=== PATIENT | male | born 1950 | race Caucasian/White ===

== ENCOUNTER 2020-12-14 14:56 | Outpatient (REF) | payer MEDICARE, MEDICAID, OTHER, SELFPAY ==
[2020-12-14 15:44] LABS: MANUAL DIFF FLAG NO
[2020-12-14 15:50] LABS: Basophils Absolute Auto 0.1 X10*3/uL (0.0-0.2); Basophils Percent Auto 0.6 % (0-2); Eosinophils Absolute Auto 0.5 X10*3/uL (0.0-0.4); Eosinophils Percent Auto 6.6 % (0-4); Hematocrit 48.9 % (42-52); Hemoglobin 16.7 g/dl (14.0-18.0); Imm Gran Abs Auto 0.05 X10*3/uL (0.00-0.03); Imm Gran Pct Auto 0.6 % (0.0-0.4); Lymphocytes Absolute Auto 2.1 X10*3/uL (1.2-4.9); Lymphocytes Percent Auto 26.6 % (20-40); Mean Corpuscular HGB Conc 34.2 g/dl (31.0-36.0); Mean Corpuscular Hemoglobin 30.4 pg (27.0-33.0); Mean Corpuscular Volume 88.9 fL (80-98); Mean Platelet Volume 11.3 fL (9.4-12.4); Monocytes Absolute Auto 0.7 X10*3/uL (0.1-1.2); Monocytes Percent Auto 9.3 % (2-11); Neutrophils Absolute Auto 4.4 X10*3/uL (2.0-8.3); Neutrophils Percent Auto 56.3 % (45-73); Platelet Count 244 X10*3/uL (160-400); White Blood Count 7.7 X10*3/uL (4.8-10.8)
[2020-12-14 16:10] LABS: Anion Gap 17 (12-20); Blood Urea Nitrogen 27 mg/dL (9-16); Calcium 9.8 mg/dL (8.4-10.2); Carbon Dioxide 23 mmol/L (22-29); Chloride 100 mmol/L (96-108); Estimated Glomerular Filt Rate 37; Potassium 4.8 mmol/L (3.3-5.1); Sodium 135 mmol/L (135-145)
== END 2020-12-14 14:57 | disposition home or self-care (01) ==
LOC: HO.LAB 14:56
PROVIDERS: PCP Family Medicine; Visit Provider Internal Medicine Nephrology
DX: E11.22 Type 2 diabetes mellitus with diabetic chronic kidney disease (principal); N18.4 Chronic kidney disease, stage 4 (severe); I15.0 Renovascular hypertension; I70.1 Atherosclerosis of renal artery
CPT/HCPCS: 36415; 80051; 82310; 82565; 84520; 85025

== ENCOUNTER 2021-05-24 08:30 | Outpatient (REF) | payer MEDICARE, OTHER, SELFPAY ==
[2021-05-24 10:20] LABS: Anion Gap 14 (12-20); Blood Urea Nitrogen 21 mg/dL (9-16); Calcium 9.6 mg/dL (8.4-10.2); Carbon Dioxide 24 mmol/L (22-29); Chloride 101 mmol/L (96-108); Estimated Glomerular Filt Rate 40; Potassium 4.3 mmol/L (3.3-5.1); Sodium 135 mmol/L (135-145)
[2021-05-24 10:42] LABS: Uric Acid 7.4 mg/dL (3.4-7.0)
[2021-05-24 11:08] LABS: Protein/Creatinine Ratio, Ur 0.52 (<0.2); Total Protein Urine Random 137 mg/dL (<12)
[2021-05-28 06:31] LABS: Calcium (PTHI) 9.5 mg/dL (8.6-10.3); PTHI 45 pg/mL (14-64)
== END 2021-05-24 08:31 | disposition home or self-care (01) ==
LOC: HO.LAB 08:30
PROVIDERS: PCP Family Medicine; Visit Provider Internal Medicine Nephrology
DX: I15.0 Renovascular hypertension (principal); I70.1 Atherosclerosis of renal artery; N18.4 Chronic kidney disease, stage 4 (severe)
CPT/HCPCS: 36415; 80051; 82310; 82565; 83970; 84100; 84156; 84520; 84550

== ENCOUNTER 2021-12-06 14:06 | Outpatient (REF) | payer MEDICARE, OTHER, SELFPAY ==
[2021-12-06 14:27] LABS: MANUAL DIFF FLAG NO
[2021-12-06 14:39] LABS: Basophils Percent Auto 0.5 % (0-2); Eosinophils Absolute Auto 0.4 X10*3/uL (0.0-0.4); Eosinophils Percent Auto 4.9 % (0-4); Hematocrit 52.8 % (42.0-52.0); Hemoglobin 17.4 g/dl (14.0-18.0); Imm Gran Abs Auto 0.03 X10*3/uL (0.00-0.03); Imm Gran Pct Auto 0.4 % (0.0-0.4); Lymphocytes Absolute Auto 2.1 X10*3/uL (1.2-4.9); Mean Corpuscular Hemoglobin 30.5 pg (27.0-33.0); Mean Corpuscular Volume 92.5 fL (80.0-98.0); Monocytes Absolute Auto 0.8 X10*3/uL (0.1-1.2); Neutrophils Percent Auto 60.2 % (45-73); Platelet Count 225 X10*3/uL (160-400); Red Blood Count 5.71 X10*6/uL (4.60-5.80); Red Cell Distribution Width 13.2 % (11.0-16.0); White Blood Count 8.3 X10*3/uL (4.8-10.8)
[2021-12-06 15:08] LABS: Anion Gap 16 (12-20); Blood Urea Nitrogen 31 mg/dL (9-16); Calcium 10.3 mg/dL (8.4-10.2); Carbon Dioxide 22 mmol/L (22-29); Chloride 103 mmol/L (96-108); Estimated Glomerular Filt Rate 31; Phosphorus 4.5 mg/dL (2.7-4.5); Sodium 136 mmol/L (135-145)
[2021-12-06 16:01] LABS: Creatinine Urine 158.06 mg/dL; Protein/Creatinine Ratio, Ur 0.12 (<0.2); Total Protein Urine Random 19 mg/dL (<12)
[2021-12-07 16:26] LABS: Calcium (PTHI) 10.2 mg/dL (8.6-10.3); PTHI 42 pg/mL (16-77)
== END 2021-12-06 14:07 | disposition home or self-care (01) ==
LOC: HO.LAB 14:06
PROVIDERS: PCP Family Medicine; Visit Provider Internal Medicine Nephrology
DX: I12.9 Hypertensive chronic kidney disease with stage 1 through stage 4 chronic kidney disease, or unspecified chronic kidney disease (principal); N18.4 Chronic kidney disease, stage 4 (severe); E11.22 Type 2 diabetes mellitus with diabetic chronic kidney disease
CPT/HCPCS: 36415; 80051; 82306; 82310; 82565; 83970; 84100; 84156; 84520; 85025

== ENCOUNTER 2022-02-15 08:31 | Outpatient (REF) | payer MEDICARE, OTHER, SELFPAY ==
[2022-02-15 10:47] LABS: Anion Gap 15 (12-20); Blood Urea Nitrogen 30 mg/dL (9-16); Calcium 10.3 mg/dL (8.4-10.2); Carbon Dioxide 23 mmol/L (22-29); Chloride 102 mmol/L (96-108); Estimated Glomerular Filt Rate 38; Potassium 4.8 mmol/L (3.3-5.1); Sodium 135 mmol/L (135-145)
== END 2022-02-15 08:32 | disposition home or self-care (01) ==
LOC: HO.LAB 08:31
PROVIDERS: PCP Family Medicine; Visit Provider Internal Medicine Nephrology
DX: I12.9 Hypertensive chronic kidney disease with stage 1 through stage 4 chronic kidney disease, or unspecified chronic kidney disease (principal); E11.22 Type 2 diabetes mellitus with diabetic chronic kidney disease; N18.4 Chronic kidney disease, stage 4 (severe)
CPT/HCPCS: 36415; 80051; 82310; 82565; 84520

== ENCOUNTER 2023-04-02 09:31 | Outpatient (REF) | payer MEDICARE, OTHER, SELFPAY ==
[2023-04-02 09:46] LABS: MANUAL DIFF FLAG NO
[2023-04-02 09:59] LABS: Basophils Absolute Auto 0.1 X10*3/uL (0.0-0.2); Basophils Percent Auto 0.9 % (0-2); Eosinophils Absolute Auto 0.6 X10*3/uL (0.0-0.4); Eosinophils Percent Auto 7.8 % (0-4); Hematocrit 49.3 % (42.0-52.0); Hemoglobin 16.8 g/dl (14.0-18.0); Imm Gran Abs Auto 0.03 X10*3/uL (0.00-0.03); Imm Gran Pct Auto 0.4 % (0.0-0.4); Lymphocytes Absolute Auto 1.5 X10*3/uL (1.2-4.9); Lymphocytes Percent Auto 19.4 % (20-40); Mean Corpuscular HGB Conc 34.1 g/dl (31.0-36.0); Mean Corpuscular Hemoglobin 30.3 pg (27.0-33.0); Mean Platelet Volume 11.6 fL (9.4-12.4); Monocytes Absolute Auto 0.7 X10*3/uL (0.1-1.2); Monocytes Percent Auto 8.5 % (2-11); Neutrophils Absolute Auto 4.8 x10*3/uL (2.0-8.3); Platelet Count 242 X10*3/uL (160-400); Red Blood Count 5.54 X10*6/uL (4.60-5.80); Red Cell Distribution Width 12.8 % (11.0-16.0); White Blood Count 7.7 X10*3/uL (4.8-10.8)
[2023-04-02 10:48] LABS: Anion Gap 15 (12-20); Blood Urea Nitrogen 38 mg/dL (9-16); Calcium 9.9 mg/dL (8.4-10.2); Carbon Dioxide 23 mmol/L (22-29); Chloride 103 mmol/L (96-108); Estimated Glomerular Filt Rate 34; Phosphorus 3.7 mg/dL (2.7-4.5); Potassium 4.5 mmol/L (3.3-5.1); Sodium 136 mmol/L (135-145)
[2023-04-02 11:04] LABS: Vitamin D 25-OH Total 30.1 ng/mL (>30)
[2023-04-02 11:55] LABS: Creatinine Urine 147.81 mg/dL; Microalbum/Creatinine Ratio Ur 80.5 ug/mg cr
[2023-04-08 14:58] LABS: Calcium (PTHI) 9.9 mg/dL (8.6-10.3); PTHI 68 pg/mL (16-77)
== END 2023-04-02 09:32 | disposition home or self-care (01) ==
LOC: HO.LAB 09:31
PROVIDERS: PCP Family Medicine; Visit Provider Internal Medicine Nephrology
DX: I70.1 Atherosclerosis of renal artery (principal); I12.9 Hypertensive chronic kidney disease with stage 1 through stage 4 chronic kidney disease, or unspecified chronic kidney disease; N18.32 Chronic kidney disease, stage 3b
CPT/HCPCS: 36415; 80051; 82043; 82306; 82310; 82565; 83970; 84100; 84520; 84550; 85025

== ENCOUNTER 2023-07-23 09:44 | Outpatient (REF) | payer MEDICARE, OTHER, SELFPAY ==
[2023-07-23 11:49] LABS: Cholesterol 163 mg/dL (<200); HDL Cholesterol 28 mg/dL (>40); Triglycerides 489 mg/dL (<150)
[2023-07-23 12:07] LABS: Alanine Aminotransferase 32 U/L (0-40); Albumin Level 4.5 g/dL (3.5-5.0); Alkaline Phosphatase 91 U/L (39-117); Anion Gap 13 (12-20); Aspartate Amino Transferase 20 U/L (5-37); Bilirubin Total 1.2 mg/dL (0.0-1.0); Blood Urea Nitrogen 30 mg/dL (9-16); Calcium 9.7 mg/dL (8.4-10.2); Carbon Dioxide 24 mmol/L (22-29); Chloride 105 mmol/L (96-108); Estimated Glomerular Filt Rate 38; Glucose Random 198 mg/dL (60-115); Potassium 4.4 mmol/L (3.3-5.1); Sodium 138 mmol/L (135-145); Total Protein 7.6 g/dL (6.5-8.0)
[2023-07-23 12:16] LABS: Creatinine Urine 162.09 mg/dL; Microalbum/Creatinine Ratio Ur 114.7 ug/mg cr (<30)
[2023-07-23 13:08] LABS: Reflex LDLD? Yes
[2023-07-25 03:54] LABS: LDL Cholesterol Direct 53 mg/dL (<100)
== END 2023-07-23 09:45 | disposition home or self-care (01) ==
LOC: HO.HHCL 09:44
PROVIDERS: Visit Provider Family Medicine
DX: E11.22 Type 2 diabetes mellitus with diabetic chronic kidney disease (principal); N18.4 Chronic kidney disease, stage 4 (severe)
CPT/HCPCS: 36415; 80053; 80061; 82043; 82570; 83721

== ENCOUNTER 2024-04-10 08:31 | Outpatient (REF) | payer MEDICARE, SELFPAY ==
[2024-04-10 08:45] LABS: MANUAL DIFF FLAG NO
[2024-04-10 08:55] LABS: Basophils Absolute Auto 0.1 X10*3/uL (0.0-0.2); Basophils Percent Auto 0.7 % (0-2); Eosinophils Absolute Auto 0.7 X10*3/uL (0.0-0.4); Eosinophils Percent Auto 10.6 % (0-4); Hematocrit 48.3 % (42.0-52.0); Hemoglobin 16.4 g/dl (14.0-18.0); Imm Gran Abs Auto 0.02 X10*3/uL (0.00-0.03); Imm Gran Pct Auto 0.3 % (0.0-0.4); Lymphocytes Absolute Auto 1.4 X10*3/uL (1.2-4.9); Lymphocytes Percent Auto 20.4 % (20-40); Mean Corpuscular Hemoglobin 31.1 pg (27.0-33.0); Mean Corpuscular Volume 91.7 fL (80.0-98.0); Mean Platelet Volume 11.6 fL (9.4-12.4); Monocytes Absolute Auto 0.6 X10*3/uL (0.1-1.2); Neutrophils Absolute Auto 4.2 x10*3/uL (2.0-8.3); Platelet Count 208 X10*3/uL (160-400); Red Blood Count 5.27 X10*6/uL (4.60-5.80)
[2024-04-10 09:08] LABS: Estimated Average Glucose 131 mg/dL; Hemoglobin A1c % 6.2 % (<6.0)
[2024-04-10 09:25] LABS: Anion Gap 14 (12-20); Blood Urea Nitrogen 30 mg/dL (9-16); Calcium 10.1 mg/dL (8.4-10.2); Carbon Dioxide 23 mmol/L (22-29); Chloride 106 mmol/L (96-108); Estimated Glomerular Filt Rate 35; Potassium 4.4 mmol/L (3.3-5.1); Sodium 139 mmol/L (135-145); Uric Acid 8.4 mg/dL (3.4-7.0)
[2024-04-10 09:31] LABS: Appearance Urine Clear; Color Urine Yellow; Glucose Urine UA >=1000 mg/dL (Negative); Leukocyte Esterase Urine Negative (Negative); Nitrite Urine Negative (Negative); PH 5.5 (5.0-9.0); Specific Gravity - Urine >= 1.030 (1.005-1.025); UMIC TRIGGER UA YES; Urine Blood Negative (Negative); Urine Ketones Trace mg/dL (Negative); Urine Protein 30 (1+) mg/dL (Neg-Trace)
[2024-04-10 09:34] LABS: Bacteria Urine None Seen (None Seen); Hyaline Casts Urine 0-2 /LPF (0-2); RBC Urine 0-2 /HPF (0-2); Squamous Epithelial Cell Urine 0-2 /HPF (0-2); WBC Urine 0-5 /HPF (0-5)
[2024-04-10 09:42] LABS: Vitamin D 25-OH Total 32.2 ng/mL (>30)
[2024-04-10 10:54] LABS: Creatinine Urine 191.29 mg/dL; Microalbum/Creatinine Ratio Ur 140.1 ug/mg cr (<30)
== END 2024-04-10 08:32 | disposition home or self-care (01) ==
LOC: HO.LAB 08:31
PROVIDERS: PCP Family Medicine; Visit Provider Internal Medicine
DX: N18.32 Chronic kidney disease, stage 3b (principal); Z13.1 Encounter for screening for diabetes mellitus
CPT/HCPCS: 36415; 80051; 81001; 82043; 82306; 82310; 82565; 82570; 83036; 83970; 84520; 84550; 85025

== ENCOUNTER 2024-09-28 09:29 | Outpatient (REF) | payer MEDICARE, SELFPAY ==
[2024-09-28 12:04] LABS: Alanine Aminotransferase 37 U/L (0-40); Alkaline Phosphatase 90 U/L (39-117); Anion Gap 10 (12-20); Aspartate Amino Transferase 23 U/L (5-37); Bilirubin Direct 0.2 mg/dL (0.0-0.5); Bilirubin Total 0.6 mg/dL (0.0-1.0); Blood Urea Nitrogen 26 mg/dL (9-16); Calcium 9.1 mg/dL (8.4-10.2); Carbon Dioxide 24 mmol/L (22-29); Chloride 111 mmol/L (96-108); Cholesterol 139 mg/dL (<200); Estimated Glomerular Filt Rate 38; Glucose Random 138 mg/dL (60-115); HDL Cholesterol 23 mg/dL (>40); LDL Cholesterol Calculated 42 mg/dL (<100); Sodium 141 mmol/L (135-145); Total Protein 6.7 g/dL (6.5-8.0); Triglycerides 371 mg/dL (<150)
[2024-09-28 12:41] LABS: Microalbum/Creatinine Ratio Ur 411.2 ug/mg cr (<30)
[2024-09-28 13:00] LABS: Reflex LDLD? No
== END 2024-09-28 09:30 | disposition home or self-care (01) ==
LOC: HO.HHCL 09:29
PROVIDERS: Visit Provider Family Medicine
DX: E78.5 Hyperlipidemia, unspecified (principal); E78.1 Pure hyperglyceridemia; E11.22 Type 2 diabetes mellitus with diabetic chronic kidney disease; N18.4 Chronic kidney disease, stage 4 (severe); E11.42 Type 2 diabetes mellitus with diabetic polyneuropathy
CPT/HCPCS: 36415; 80048; 80061; 80076; 82043; 82570

== ENCOUNTER 2024-10-14 10:00 | Outpatient (REF) | payer MEDICARE, SELFPAY ==
--- NOTE | ~2024-10-14 | XR_ITS ---
EXAMINATION: XR CHEST CLINICAL INFORMATION: cough. Non-smoker COMPARISON: None available. TECHNIQUE: 2 views of the chest were obtained. FINDINGS: The cardiac, hilar, and mediastinal contours are normal. The aorta is diffusely calcified. The lungs are clear bilaterally. There is no pneumothorax or pleural effusion. There is no focal osseous or soft tissue abnormality. Herniorrhaphy clips in the epigastric region. XR/XR chest 2V IMPRESSION: No active disease. Electronically signed by: Agus Snyder MD 10/14/2024 11:12 AM [facility]
--- OUTSIDE RECORDS SUMMARY | 2024-10-14 11:50 | XMS_ITS | Encounter Summary ---
Author Organization [employer] Address [address] [facility] 7t [place] [address] Care Team Providers Care Primer Waterproofing Machine Operator Name Role Phone Keturah Halwey MD Primary Care Provider [phone] Lucio Sutton PharmD Unavailable [phone] Reason for Visit * Reason Comments Med Refill Encounter Details Date Type Department Care Team ([facility] st Contact Info) Description 10/03/2024 Refill [facility] & PEDS [address] [place], [place] [phone] Keturah Hawley MD [address] [facility] [facility] [place], [place] [phone] Social History Tobacco Use Types Packs/Day Years Used Date Smoking Tobacco: Former Cigarettes Q uit: 12/19/2008 Passive Smoke Exposure: Past Smokeless Tobacco: Never Depression Answer Date Recorded Patient Health Questionnaire-9 Score 3 10/22/2023 Patient Health Questionnaire-9 Score 3 10/22/2023 Last PHQ-9: Questionnaire Data Not on file 0 10/22/2023 Housing Stability Answer Date Recorded What is your housing situation today? I have he escalona 01/21/[address] you li ve. Do you have problems with any of the following? None of the above 01/21/2024 Food Insecurity Answer Date Recorded Within the past 12 months, y ou worried that your food would run out before you got money to buy more: Never True 01/21/2024 Within the past 12 months,th e food you bought just didn't last and you didn't have enough money to get more: Never True 03/2024 Transportation Answer Date Recorded In the past 12 months, has l ack of transportation kept you from medical appts, meetings, work or from getting things needed for daily living? No 01/21/2024 Utilities Answer Date Recorded In the past 12 months, has t he electric, gas, oil or water company threatened to shut off services in your home? No 01/21/2024 Depression Answer Date Recorded Patient Health Questionnaire-2 Score 3 10/22/2023 Sex and Gender Information Value Date Recorded Sex Assigned at Male 07/16/2022 10:19 AM EDT Legal Sex Male 10:19 AM EDT Gender Identity Male 07/16/2022 10:19 AM EDT Sexual Orientation Straight 07/16/2022 10 :19 AM EDT documented as of this encounter Plan of Treatment Upcoming Encounters Date Type Department Care Team (Late st Contact Info) Description 10/23/2024 2:00 PM EST Office Visit [facility] MEDICINE [address] [place] [phone] Ro Galan MD [address] [place] [phone] 10/26/2024 10:30 AM EST Medication Management [address] [address] Lucio Sutton, PharmRobin [address] [place] [phone] documented as of this encounter Visit Diagnoses Not on filedocumented in this encounter Additional Health Concerns Assessment Noted Time PHQ-9 Depression Total Score: 3 10/22/19 24 9:09 AM EST documented as of this encounter Care Teams Primer Waterproofing Machine Operator Relationship Specialty Start Date End Date Keturah Hawley MD [address] [place] [address] PCP - General Family Medicine 09/16/18 Lucio Sutton, PharmD [address] [place] [address] Pharmacist Internal Medicine 08/25/24 documented as of this encounter
--- OUTSIDE RECORDS SUMMARY | 2024-10-14 11:50 | XMS_ITS | Encounter Summary ---
Author Organization [employer] Address [address] 7[address] [place] [address] Care Team Providers Care Data Services Developer Name Role Phone Keturah Hawley MD Primary Care Provider [phone] Lucio Sutton PharmD Unavailable [phone] Reason for Visit * Reason Onset Date Comments chart prep 09/24/2024 Encounter Details Date Type Department Care Team (Late st Contact Info) Description 09/24/2024 Telephone [facility] [address] [place], [place] [phone] Aggie Gabriel MA chart prep Social History Tobacco Use Types Packs/Day Years [...] AM EDT documented as of this encounter Miscellaneous Notes * Telephone Encounter - Aggie Gabriel MA - 09/24/2024 1:45 PM EST ..Chart Prep Labs: not done 08/25/24 Images: not applicable Vaccines due: Covid Due Referrals: Completed Screenings: Colonoscopy and Foot Exam Overdue care gaps: Oral Health and Jeffrey-7 A1c bs documented in this encounter Plan of Treatment Upcoming Encounters Date Type Department Care Team (Late st Contact Info) Description 10/23/2024 2:00 PM EST Office Visit [facility] [address] [place] [phone] Ro Galan MD [address] [place] [address] 10/26/2024 10:30 AM EST Medication Management [facility] [address] [place] [address] Lucio Suttno, PharmD [address] [place] [address] documented as of this encounter Visit Diagnoses Not on filedocumented in this encounter Additional Health Concerns Assessment Noted Time PHQ-9 Depression Total Score: 3 10/22/19 24 9:09 AM EST documented as of this encounter Care Teams Data Services Developer Relationship Specialty Start Date End Date Keturah Hawley MD [address] [place] [phone] PCP - General Family Medicine 09/16/18 Lucio Sutton, EdenilsonD [address] [place] [address] [place] [address] Pharmacist Internal Medicine 08/25/24 documented as of this encounter
--- OUTSIDE RECORDS SUMMARY | 2024-10-14 11:50 | XMS_ITS | Clinical Summary ---
Author Organization [facility] Address [address] [place] [address] Phone Care Team Providers Care Stage Technician Name Role Phone Keturah Hawley MD Primary Care Provider [phone] Allergies No known active allergies Medications metoprolol tartrate (LOPRESSOR) 100 MG tablet Take 100 mg by mouth 2 (two) times a day Active glipiZIDE (GLUCOTROL) 10 MG tablet Take 20 mg by mouth 2 (two) times a day Active clopidogrel (PLAVIX) 75 MG tablet Take 75 mg by mouth 1 (one) time each day Active amLODIPine (NORVASC) 10 MG tablet Take 10 mg by mouth 1 (one) time each day Active pantoprazole (PROTONIX) 20 MG EC tablet Take 20 mg by mouth 1 (one) time each day before breakfast Do not crush, chew, or split. Active aspirin (ST ALYX) 81 MG EC tablet Take 81 mg by mouth 1 (one) time each day Active atorvastatin (LIPITOR) 80 MG tablet Take 80 mg by mouth 1 (one) time each day 2 Active omega-3 (FISH OIL) 1000 MG capsule Take 1,000 mg by mouth 1 (one) time each day Active hydrALAZINE 100 MG tablet Take 1 tablet by mouth in the morning and 1 tablet in the evening. 3 Active Empagliflozin 25 MG tablet Take 25 mg by mouth 1 (one) time each day 30 tablet 11 4 05/07/20 25 Active lisinopril 2.5 MG tablet TAKE 1 TABLET BY MOUTH EVERY MORNING 30 tablet 4 Active Active Problems Problem Noted Date Diagnosed Date Vascular disorder 10/03/2022 Overview (10/03/2022): Last Assessment & Plan: -Vascular specialist: Dr. Dallas, [facility], last appt on 06/12/22 -Left renal artery bypass in January 2009 -Right renal artery angioplasty and stenting in November 2013 -Left carotid endarterectomy in January 2016 -11/23/21 Carotid US 50-69% stenosis, stable -05/27/22 Aortobifemoral graft scan, patent graft, with increased velocity throughout, stenosis at femoral anastamosis > 75 % bilaterally -11/23/21 WINNIE Right 0.57; Left 0.68 -Continue dual antiplatelet therapy and risk factor management. 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 Townsend, -Currently followed by Dr. Russell -02/15/22 SCr 1.79, eGFR 38, K 4.8 -Avoid nephrotoxic drugs/substances and behaviors, including NSAIDs use. -Renal dosing meds, eCrCl 30 -Maintain adequate fluid intake, appropriate BP control and electrolyte balance. -Emphasized the importance of keeping appt with project coach Dyslipidemia 03/14/2015 Overview (10/03/2022): Last Assessment & Plan: Current medications: atorvastatin 20 mg qhs; Fish oil 2 g daily Last lipid profile: 07/04/22 TC 169; TG 398; HDL 32; LDL 84 Continue high-intensity statin therapy. Consider adding Zetia. Hypertriglyceridemia 12/09/2014 Overview (10/03/2022): Last Assessment & Plan: Current medications: atorvastatin 20 mg qhs; Fish oil 2 g daily Last lipid profile: 07/04/22 TC 169; TG 398; HDL 32; LDL 84 Continue high-intensity statin therapy. Consider adding Zetia. Gastroesophageal reflux disease 06/11/2012 Subclavian artery stenosis 06/11/2012 Peripheral arterial occlusive disease 06/11/2012 Overview (10/03/2022): Last Assessment & Plan: [facility] -last seen on 06/12/2022 -Treatment Hx: Left renal artery bypass in January 2009; Right renal artery angioplasty and stenting in November 2013; Left carotid endarterectomy in January 2016 -On dual antiplatelet therapy with Plavix and ASA. - lifelong dual antiplatelet due to renal artery stent/bypass and ileo-renal artery bypass. Most recent arterial studies -11/23/21 Carotid US 50-69% stenosis, stable -05/27/22 Aortobifemoral graft scan, patent graft, with increased velocity throughout, stenosis at femoral anastamosis > 75 % bilaterally -11/23/21 WINNIE Right 0.57; Left 0.68 -Continue risk factor management. -Continue surveillance study -ISI / WINNIE and UEA doppler q6-12m -renal artery / aortobifemoral graft scan q3-6m -carotid US q9-12 m Incipient senile cataract 04/11/2012 Immunizations Name Administration Dates Next Due Hepatitis B 07/01/2008,02/25/2008,01/22/2008 Influenza Split 06/24/2013,06/11/2012 Influenza Split High Dose Pr eservative Free IM 07/15/2019,06/20/2017,06/20/2015 Influenza, Quadrivalent, Preservative Free 09/04,06/17/2015 Influenza, Quadrivalent, With Preservative 07/05 Pneumococcal Conjugate 13-Valent 12/09/2014 Pneumococcal Polysaccharide 01/18/2014, 8 Shingrix 03/30/2020,10/12/2019 Td 07/04/2022,10/17/2007 Tdap 01/16/2012 Zoster 03/30/2020,10/12/2019,12/09/2014 Family History Medical History Relation Comments Heart disease Father PA Relation Status Comments Father Mother Social History Tobacco Use Types Packs/Day Years Used Date Smoking Tobacco: Former Cigarettes Q uit: 09/16/2007 Smokeless Tobacco: Never Tobacco Cessation:Counseling Given: Not Answered Comments:Smoking History Info:Every day Alcohol Use Standard Drinks/Week Comments Yes 0 (1 standard drink = 0.6 oz pure alcohol) Alcoholic Drinks/day: Occasional social drink Sex and Gender Information Value Date Recorded Sex Assigned at Not on file Legal Sex Male 4:34 PM EST Gender Identity Not on file Sexual Orientation Not on file Last Filed Vital Signs Vital Sign Reading Time Taken Comments Blood Pressure 134/58 05/07/2024 1:09 PM EDT Pulse 52 05/07/2024 1:09 PM EDT Temperature - - Respiratory Rate - - Oxygen Saturation 97% 05/07/2024 1:09 PM EDT Inhaled Oxygen Concentration - - Weight 93.4 kg (205 lb 12.8 oz) 05/07/2024 1:09 PM EDT Height 165.1 cm (5' 5 ) 05/07/2024 1:09 PM EDT Body Mass Index 34.25 05/07/2024 1:09 PM EDT Plan of Treatment Upcoming Encounters Date Type Department Care Team (Late st Contact Info) Description 11/26/2024 1:15 PM EDT Office Visit [facility] [address] [place] [address] Francis Shah MD [address] [facility] [address] [place] [address] Health Maintenance Due Date Last Done Comments Colorectal Cancer Screening: Annual FOBT 1998 Colorectal Cancer Screening: Colonoscopy 1998 Colorectal Cancer Screening: Sigmoidoscopy 1998 Diabetes: Ophthalmology Exam 12/07/2019 Diabetes: Pedal Pulse Checked 12/07/2019 Diabetes: Sensory Foot Exam 12/07/2019 Diabetes: Visual Foot Exam 12/07/2019 Diabetes: Hemoglobin A1C 12/27/2024 025, 04/28/2024, 10/22/2023, Additional history exists Hepatitis B Vaccine Aged Out 07/01/2008, 02/25/2008, 01/22/2008 No longer eligible based on patient's age to complete this topic Pneumococcal Vaccine: 65+ Years Completed 10/22/2023, 12/09/2014, 01/18/2014, Additional history exists Influenza Vaccine Completed 07/23/2024, , 07/15/2019, Additional history exists Insurance MEDICARE MEDICARE MEDICAID [place] Care Teams Stage Technician Relationship Specialty Start Date End Date Keturah Hawley MD PCP - General Family Medicine 12/14/20
--- OUTSIDE RECORDS SUMMARY | 2024-10-14 11:50 | XMS_ITS | Encounter Summary ---
Author Organization [employer] Address [address] [facility] [address] [place] [address] Care Team Providers Care Category Director Name Role Phone Keturah Hawley MD Primary Care Provider [phone] Lucio Sutton PharmD Unavailable [phone] Encounter Details Date Type Department Care Team (Late st Contact Info) Description 10/03/2022 Abstract [facility] MEDICINE [address] [place] [phone] Keturah Hawley MD [address] [place] [phone] Social History Tobacco Use Types Packs/Day Years Used Date Smoking Tobacco: Never Assessed Sex and Gender Information Value Date Recorded Sex Assigned at Male 07/16/2022 10:19 AM EDT Legal Sex Male 10:19 AM EDT Gender Identity Male 07/16/2022 10:19 AM EDT Sexual Orientation Straight 07/16/2022 10 :19 AM EDT documented as of this encounter Plan of Treatment Upcoming Encounters Date Type Department Care Team (Late st Contact Info) Description 10/23/2024 2:00 PM EST Office Visit [facility] MEDICINE [address] [place] [phone] Ro Galan MD [address] [place] [phone] 10/26/2024 10:30 AM EST Medication Management [facility] MEDICINE [address] [place] [phone] Lucio Sutton, PharmD [address] [place] [address] documented as of this encounter Visit Diagnoses Not on filedocumented in this encounter Care Teams Category Director Relationship Specialty Start Date End Date Keturah Hawley MD [address] [place], [place] [phone] PCP - General Family Medicine 09/16/18 Lucio Sutton, EdenilsonD [address] [place] [address] Pharmacist Internal Medicine 08/25/24 documented as of this encounter
--- OUTSIDE RECORDS SUMMARY | 2024-10-14 11:50 | XMS_ITS | Encounter Summary ---
Author Organization [employer] Address [address] [facility] 7t [place] [address] Care Team Providers Care Legal File Clerk Name Role Phone Keturah Hawley MD Primary Care Provider Lucio Sutton PharmD Unavailable [phone] Encounter Details Date Type Department Care Team (Late st Contact Info) Description 10/12/2024 Orders Only [facility] [address] [place], [place] [phone] Keturah Hawley MD [address] [place], [place] [phone] Subacute cough (Primary Dx) Social History Tobacco Use Types Packs/Day Years [...] Description 10/23/2024 2:00 PM EST Office Visit [facility] MEDICINE [address] [place] [address] Ro Galan MD [address] [place] [address] 10/26/2024 10:30 AM EST Medication Management [facility] [address] [place] [address] Lucio Sutton, PharmD [address] [place] [address] documented as of this encounter Procedures Procedure Name Priority Date/Time Associated Diagnosis Comments XR CHEST 2 VIEWS Routine 10/14/2024 10:0 1 AM EST Subacute cough documented in this encounter Results * XR Chest 2 Views (10/14/2024 10:01 AM EST) Anatomical Region Laterality Modality Chest Radiographic Poppy ging 10/14/2024 10:0 1 AM EST Narrative 10/14/2024 11:14 AM EST ?[facility] ?[address] ?[place] [address] ?XRay Report ? Signed ? Patient: Tardy,Jerome ?MR#: [id number] ? : 1950 ?Acct:[id number] ? Age/Sex: 74 / M ?ADM Date: /29/25 ? Loc: HO.HHCX ? Attending Dr: Keturah Hawley MD ? Ordering Physician: Keturah Hawley MD ?? Date of Service: 10/14/24 ?? Procedure(s): XR chest 2V ?? Accession Number(s): [id number] ? cc: Keturah Hawley MD ? EXAMINATION: ?? XR CHEST ? CLINICAL INFORMATION: ?? cough. ??Non-smoker ? COMPARISON: ?? None available. ? TECHNIQUE: ?? 2 views of the chest were obtained. ? FINDINGS: ?? The cardiac, hilar, and mediastinal contours are normal. The aorta is ?? diffusely calcified. ? The lungs are clear bilaterally. There is no pneumothorax or pleural ?? effusion. ? There is no focal osseous or soft tissue abnormality. Herniorrhaphy ?? clips in the epigastric region. ? XR/XR chest 2V ?? IMPRESSION: ?? No active disease. ? Electronically signed by: ??Agus Snyder MD ??10/14/2024 11:12 AM EST RP ? Dictated By: ?Agus Snyder MD ? Signed By: ?<Electronically signed by Agus Snyder MD in OV> ?10/14/24 1112 ? DD/ 1001 ? TD/TT: 10/14/24 1010 ? Inside Sales Recruiter: ? Procedure Note Kenia, Image - 10/14/2024 [place] [address] XRay Report Signed Patient: Jose Barclay LMR#: [id number] : 9Acct:[id number] Age/Sex: 74 / MADM Date: 10/14/24 Loc: HO.HHCX Attending Dr: Keturah Hawley MD Ordering Physician: Keturah Hawley MD Date of Service: 10/14/24 Procedure(s): XR chest 2V Accession Number(s): [id number] cc: Keturah Hawlye MD EXAMINATION: XR CHEST CLINICAL INFORMATION: cough. Non-smoker COMPARISON: None available. TECHNIQUE: 2 views of the chest were obtained. FINDINGS: The cardiac, hilar, and mediastinal contours are normal. The aorta is diffusely calcified. The lungs are clear bilaterally. There is no pneumothorax or pleural effusion. There is no focal osseous or soft tissue abnormality. Herniorrhaphy clips in the epigastric region. XR/XR chest 2V IMPRESSION: No active disease. Electronically signed by: Agus Snyder MD 10/14/2024 11:12 AM EST Dictated By: Agus Snyder MD Signed By: <Electronically signed by Agus Snyder MD in OV> 10/14/24 1112 DD/ 1001 TD/TT: 10/14/24 1010 Inside Sales Recruiter: Keturah Hawley MD IMG XR PROCEDURES Edited Result - Final documented in this encounter Visit Diagnoses Diagnosis Subacute cough- Primary documented in this encounter Additional Health Concerns Assessment Noted Time PHQ-9 Depression Total Score: 3 10/22/19 24 9:09 AM EST documented as of this encounter Care Teams Legal File Clerk Relationship Specialty Start Date End Date Keturah Hawley MD [address] [place] [address] PCP - General Family Medicine 09/16/18 Lucio Sutton, EdenilsonD [address] [place] [address] Pharmacist Internal Medicine 08/25/24 documented as of this encounter
--- OUTSIDE RECORDS SUMMARY | 2024-10-14 11:50 | XMS_ITS | Encounter Summary ---
Author Organization [employer] Address [address] [facility] [address] [place] [address] Care Team Providers Care Densitometer Reader Name Role Phone Keturah Hawley MD Primary Care Provider [phone] Lucio Sutton PharmD Unavailable [phone] Encounter Details Date Type Department Care Team (Late st Contact Info) Description 10/14/2024 10:40 AM EST Office Visit [facility] [address] [place] [address] Viral URI Social History Tobacco Use Types Packs/Day Years [...] t he electric, gas, oil or water [employer] threatened to shut off services in your home? No 01/21/2024 Depression Answer Date Recorded Patient Health Questionnaire-2 Score 3 10/22/2023 Sex and Gender Information Value Date Recorded Sex Assigned at Male 07/16/2022 10:19 AM EDT Legal Sex Male 10:19 AM EDT Gender Identity Male 07/16/2022 10:19 AM EDT Sexual Orientation Straight 07/16/2022 10 :19 AM EDT documented as of this encounter Last Filed Vital Signs Vital Sign Reading Time Taken Comments Blood Pressure 124/59 10/14/2024 11:00 AM EST Pulse 57 10/14/2024 11:00 AM EST Temperature 35.9 ??C (96.7 ??F) 10/14/2024 11:[address] Respiratory Rate 16 10/14/2024 11:00 AM EST Oxygen Saturation 95% 10/14/2024 11:00 AM EST Inhaled Oxygen Concentration - - Weight 83.9 kg (185 lb) 10/14/2024 11:00 AM EST Height - - Body Mass Index 29.86 09/28/2024 9:02 AM EST documented in this encounter Plan of Treatment Upcoming Encounters Date Type Department Care Team (Late st Contact Info) Description 10/23/2024 2:00 PM EST Office Visit [facility] [address] [place] [phone] Ro Galan MD [address] [place] [phone] 10/26/2024 10:30 AM EST Medication Management [facility] [address] [place] [phone] Lucio Sutton, PharmD [address] [place] [phone] documented as of this encounter Procedures Procedure Name Priority Date/Time Associated Diagnosis Comments POCT INFLUENZA B (ID NOW RAPID MOLECULAR) Routine 10/14/2024 11:34 AM EST Viral URI POCT INFLUENZA A (ID NOW RAPID MOLECULAR) Routine 10/14/2024 11:34 AM EST Viral URI POCT RAPID COVID ANTIGEN Routine 10/14/2024 11:34 AM EST Viral URI documented in this encounter Results * Influenza A (ID NOW Rapid Molecular) (10/14/2024 11:34 AM EST) Influenza A Negative Negative, Indeterminate [facility] Swab 10/14/2024 11:3 4 AM EST us Lyndon Romero MD POINT OF CARE TEST ENTER/EDIT OR DERABLES Final Result Performing Organization Address [facility] [[email or web address]] Co de Phone Number [facility] [address] [place] [phone] * Influenza B (ID NOW Rapid Molecular) (10/14/2024 11:34 AM EST) Pathologist [facility] Influenza B Negative Negative, Indeterminate [facility] Swab 10/14/2024 11:3 4 AM EST us Lyndon Romero MD POINT OF CARE TEST ENTER/EDIT OR DERABLES Final Result Performing Organization Address [facility] [[email or web address]] Co de Phone Number [facility] [address] [place] [phone] * POCT Rapid COVID Ag (10/14/2024 11:34 AM EST) Rapid COVID Ag Negative [facility] Swab 10/14/2024 11:3 4 AM EST us Lyndon Romero MD POINT OF CARE TEST ENTER/EDIT OR DERABLES Final Result Performing Organization Address [facility] [[email or web address]] Co de Phone Number [facility] [address] [place] [phone] documented in this encounter Visit Diagnoses Diagnosis Viral URI Acute upper respiratory infections of unspecified site documented in this encounter Additional Health Concerns Assessment Noted Time PHQ-9 Depression Total Score: 3 10/22/19 24 9:09 AM EST documented as of this encounter Care Teams Densitometer Reader Relationship Specialty Start Date End Date Keturah Hawley MD [address] [place] [address] PCP - General Family Medicine 09/16/18 Lucio Sutton, Maryana [address] [place] [phone] Pharmacist Internal Medicine 08/25/24 documented as of this encounter
--- OUTSIDE RECORDS SUMMARY | 2024-10-14 11:50 | XMS_ITS | Encounter Summary ---
Author Organization [facility] Address [address] [facility] [address]t [place] [address] Care Team Providers Care Core Setter Name Role Phone Keturah Hawley MD Primary Care Provider [phone] Lucio Sutton PharmD Unavailable [phone] Encounter Details Date Type Department Care Team (Late st Contact Info) Description 08/31/2024 Orders Only [facility] MEDICINE [address] [place], [place] [phone] Keturah Hawley MD [address] [place], [place] [phone] Type 2 diabetes mellitus without complications (CMS/HCC) Social History Tobacco Use Types Packs/Day Years [...] Description 10/23/2024 2:00 PM EST Office Visit [facility] MEDICINE [address] [place] [phone] Ro Galan MD [address] [place] [phone] 10/26/2024 10:30 AM EST Medication Management [facility] MEDICINE [address] [place] [phone] Lucio Sutton, PharmD [address] [place] [phone] documented as of this encounter Procedures Procedure Name Priority Date/Time Associated Diagnosis Comments HEPATIC FUNCTION PANEL Routine 09/28/2024 9:32 AM EST Type 2 diabetes mellitus without complications (CMS/HCC) LIPID PANEL, STANDARD Routine 09/28/2024 9:32 AM EST Type 2 diabetes mellitus without complications (CMS/HCC) BASIC METABOLIC PANEL Routine 09/28/2024 9:32 AM EST Type 2 diabetes mellitus without complications (CMS/HCC) ALBUMIN, RANDOM URINE W/CREATININE Routine 09/28/2024 9:22 AM EST Type 2 diabetes mellitus without complications (CMS/HCC) documented in this encounter Results * (ABNORMAL) Lipid Panel, Standard (09/28/2024 9:32 AM EST) Triglycerides 371(H) <150 mg/dL [facility] Comment:Desirable Triglyceri de: less than 150 mg/dLBorderline High Triglyceride 150-199 mg/dLHigh Triglyceride: 200-499 mg/dLVery High Triglyceride: greater than or equal to 5OO mg/dL Cholesterol 139 <200 mg/dL [facility] Comment:Desirable Cholestero l: less than 200 mg/dLBorderline High Cholesterol: 200-239 mg/dLHigh Cholesterol: greater than 239 mg/dL LDL Cholesterol Calculated 42 <100 mg/dL [facility] Comment:Desirable LDL: less than 100 mg/dLNear Optimal/Above Optimal LDL: 110- 129 mg/dLBorderline High LDL: 130-159 mg/dLHigh LDL: 160-189 mg/dLVery High LDL: greater than or equal to 190 mg/dL HDL Cholesterol 23(L) >40 mg/dL [facility] Comment:Desirable HDL: great er than 40 mg/dL Note: This HDL assay may give artificially low results in patients with liver disease. 09/28/2024 9:32 AM EST 09/28/2024 10:59 AM EST us Keturah Hawley MD LAB BLOOD ORDERABLES Final Resul t [facility] [address] [place] [phone] * (ABNORMAL) Basic Metabolic Panel (09/28/2024 9:32 AM EST) Sodium 141 135 - 145 mmol/L [facility] Potassium 4.0 3.3 - 5.1 mmol/L [facility] Chloride 111(H) 96 - 108 mmol/L [facility] Carbon Dioxide 24 22 - 29 mmol/L [facility] Anion Gap 10(L) 12 - 20 [facility] Urea Nitrogen (BUN) 26(H) 9 - 16 mg/dL [facility] Creatinine, Serum 1.74(H) 0.5 - 1.4 mg/dL [facility] Estimated Glomerular Filt Rate 38 [facility] Comment:Chronic Kidney Disea se: Estimated GFR < 60 mL/min/[id number] Kidney Disease: Estimated GFR < 15 mL/min/1.73m2 Glucose 138(H) 60 - 115 mg/dL [facility] Calcium 9.1 8.4 - 10.2 mg/dL [facility] 09/28/2024 9:32 AM EST 09/28/2024 10:59 AM EST Keturah Hawley MD LAB BLOOD ORDERABLES Final Resul t Performing Organization Address [facility] de Phone Number [facility] [address] [place] [phone] * Hepatic Function Panel (09/28/2024 9:32 AM EST) Bilirubin, Total 0.6 0.0 - 1.0 mg/dL [facility] Bilirubin, Direct 0.2 0.0 - 0.5 mg/dL [facility] Aspartate Amino Transferase 23 5 - 37 U/L [facility] Alanine Aminotransferase 37 0 - 40 U/L [facility] Total Protein 6.7 6.5 - 8.0 g/dL [facility] Albumin Level 4.0 3.5 - 5.0 g/dL [facility] Alkaline Phosphatase 90 39 - 117 U/L [facility] 09/28/2024 9:32 AM EST 09/28/2024 10:59 AM EST us Keturah Hawley MD LAB BLOOD ORDERABLES Final Resul t Performing Organization Address [facility] de Phone Number [facility] [address] [place] [phone] * (ABNORMAL) Albumin, Random Urine W/Creatinine (09/28/2024 9:22 AM EST) Creatinine, Urine 341.60 mg/dL [facility] Microalbumin Urine 1,405.0 mg/L [facility] Microalbum Creatinine Ratio Ur 411.2(H) <30 ug/mg cr [facility] Comment:Albumin/Creatinine R atio Reference Ranges: Normal: < 30 ug/mg creatinine Microalbuminuria: 30 - 300 ug/mg creatinineClinical Albuminuria: > 300 ug/mg creatinine 09/28/2024 9:22 AM EST 09/28/2024 10:58 AM EST us Keturah Hawley MD LAB URINE ORDERABLES Final Resul t [facility] [address] [place] [phone] documented in this encounter Visit Diagnoses Diagnosis Type 2 diabetes mellitus without complications (CMS/HCC) documented in this encounter Additional Health Concerns Assessment Noted Time PHQ-9 Depression Total Score: 3 10/22/19 24 9:09 AM EST documented as of this encounter Care Teams Core Setter Relationship Specialty Start Date End Date Keturah Hawley MD [address] [place] [phone] PCP - General Family Medicine 09/16/18 Lucio Sutton, PharmD [address] [place] [address] Pharmacist Internal Medicine 08/25/24 documented as of this encounter
--- OUTSIDE RECORDS SUMMARY | 2024-10-14 11:50 | XMS_ITS | Encounter Summary ---
Author Organization [facility] [employer] Address [address] [facility] 7[address] [place] [address] Care Team Providers Care Pin Drafter Name Role Phone Keturah Hawley MD Primary Care Provider [phone] Lucio Sutton PharmD Unavailable [phone] Reason for Visit * Reason Comments Med Refill Encounter Details Date Type Department Care Team ([facility] st Contact Info) Description 07/03/2023 Refill [facility]S [address] [place], [place] [phone] Keturah Hawley MD [address] [facility] [place], [place] [phone] Social History Tobacco Use Types Packs/Day Years Used Date Smoking Tobacco: Former Cigarettes Q uit: 12/19/2008 Passive Smoke Exposure: Past Smokeless Tobacco: Never Depression Answer Date Recorded Patient Health Questionnaire-9 Score 0 10/16/2022 Housing Stability Answer Date Recorded What is your housing situation today? I have hearacelis escalona 07/03/[address] you li ve. Do you have problems with any of the following? None of the above 07/03/2023 Food Insecurity Answer Date Recorded Within the past 12 months, y ou worried that your food would run out before you got money to buy more: Never True 07/03/2023 Within the past 12 months,th e food you bought just didn't last and you didn't have enough money to get more: Never True Transportation Answer Date Recorded In the past 12 months, has l ack of transportation kept you from medical appts, meetings, work or from getting things needed for daily living? No 07/03/2023 Utilities Answer Date Recorded In the past 12 months, has t he electric, gas, oil or water company threatened to shut off services in your home? No 07/03/2023 Depression Answer Date Recorded Patient Health Questionnaire-2 Score 0 10/16/2022 Sex and Gender Information Value Date Recorded Sex Assigned at Male 07/16/2022 10:19 AM EDT Legal Sex Male 10:19 AM EDT Gender Identity Male 07/16/2022 10:19 AM EDT Sexual Orientation Straight 07/16/2022 10 :19 AM EDT documented as of this encounter Plan of Treatment Upcoming Encounters Date Type Department Care Team (Late st Contact Info) Description 10/23/2024 2:00 PM EST Office Visit [facility] MEDICINE [address] [place] [phone] Ro Galan MD [address] [place] [phone] 10/26/2024 10:30 AM EST Medication Management [facility] [address] [place] [phone] Lucio Sutton, PharmD [address] [place] [phone] documented as of this encounter Visit Diagnoses Not on filedocumented in this encounter Additional Health Concerns Assessment Noted Time PHQ-9 Depression Total Score: 0 10/16/19 23 9:09 AM EST documented as of this encounter Care Teams Pin Drafter Relationship Specialty Start Date End Date Keturah Hawley MD [address] [place] [phone] PCP - General Family Medicine 09/16/18 Lucio Sutton, PharmD [address] [place] [phone] Pharmacist Internal Medicine 08/25/24 documented as of this encounter
--- OUTSIDE RECORDS SUMMARY | 2024-10-14 11:50 | XMS_ITS | Clinical Summary ---
Author Organization [employer] Address [address] [place] [address] Care Team Providers Care Director Digital Name Role Phone Keturah Hawley MD Primary Care Provider [phone] Lucio Sutton PharmD Unavailable [phone] Allergies No known active allergies Medications pantoprazole (ProtoNix) 20 MG EC tablet TAKE 1 TABLET BY MOUTH EVERY MORNING 90 tablet 3 04/15/20 24 Active clopidogrel (Plavix) 75 MG tablet TAKE 1 TABLET BY MOUTH EVERY MORNING 90 tablet 3 04/15/20 24 Active hydrALAZINE (Apresoline) 100 MG tablet TAKE 1 TABLET BY MOUTH TWICE DAILY IN THE MORNING AND AT BEDTIME 180 tablet 3 04/15/20 24 Active doxazosin (Cardura) 2 MG tablet Take 1 tablet (2 mg) by mouth at bedtime. 90 tablet 3 06/16/20 24 Active glipiZIDE (Glucotrol) 10 MG tablet TAKE 2 TABLETS BY MOUTH TWICE DAILY IN THE MORNING AND AT NOON BEFORE MEALS 360 tablet 3 06/16/20 24 Active aspirin (Aspirin Low Dose) 81 MG EC tablet TAKE 1 TABLET BY MOUTH EVERY MORNING 90 tablet 3 06/16/20 24 Active Jardiance 25 MG 06/15/20 24 Active losartan (Cozaar) 25 MG tablet Take 1/2 tablet by mouth once daily 30 tablet 11 07/23/20 24 Active FREESTYLE LITE test stripIndications :Type 2 diabetes mellitus without complications (CMS/HCC) TEST BLOOD SUGAR ONCE DAILY 50 strip 11 08/31/20 24 Active TRUEplus Lancets 33G miscIndications: Type 2 diabetes mellitus without complications ([facility]/HCC) Check blood glucose once daily 100 each 11 08/31/20 24 Active Dextromethorphan -guaiFENesin (Mucinex DM) 30-600 MG tablet sustained-releas e 12 hour Use 1 tab TID 28 tablet 09/01/20 24 Active cetirizine (ZyrTEC) 5 MG tablet Take 1 tablet (5 mg) by mouth if needed each day for allergies. 30 tablet 3 09/28/19 25 2025 Active fluticasone (Flonase) 50 MCG/ACT nasal spray Administer 1-2 sprays into each nostril Once per day. Shake gently. Before first use, prime pump. After use, clean tip and replace cap. 16 g 2 09/28/19 25 2025 Active acetaminophen (Tylenol Extra Strength) 500 MG tablet Take 1 or 2 tablets every 8 hours as needed for pain or fever. Please do not take more than 6 tabs per 24 hours. 60 tablet 1 09/28/19 25 Active amLODIPine (Norvasc) 10 MG tablet TAKE 1 TABLET BY MOUTH EVERY MORNING 30 tablet 4 10/06/19 25 Active atorvastatin (Lipitor) 80 MG tablet TAKE 1 TABLET BY MOUTH EVERY MORNING 30 tablet 4 10/06/19 25 Active metoprolol tartrate (Lopressor) 100 MG tablet TAKE 1 TABLET BY MOUTH TWICE DAILY IN THE MORNING AND AT BEDTIME WITH MEALS 60 tablet 4 10/06/19 25 Active albuterol 108 (90 Base) MCG/ACT inhaler Inhale 2 puffs every 4 (four) hours if needed for wheezing. 18 g 3 10/14/19 25 2025 Active predniSONE (Deltasone) 10 MG tablet Take 4 tablets (40 mg) by mouth Once per day for 3 days, THEN 3 tablets (30 mg) Once per day for 3 days, THEN 2 tablets (20 mg) Once per day for 3 days, THEN 1 tablet (10 mg) Once per day for 3 days. 30 tablet 10/14/19 25 2024 Active Spacer/Aero-Hold ing Chambers (OptiChamber Adriana) misc 1 each every 4 (four) hours if needed (asthma). 1 each 10/14/19 25 Active amLODIPine (Norvasc) 10 MG tablet TAKE 1 TABLET BY MOUTH EVERY MORNING 30 tablet 4 05/11/20 24 2024 Discontinued atorvastatin (Lipitor) 80 MG tablet TAKE 1 TABLET BY MOUTH EVERY MORNING 30 tablet 4 05/11/20 24 2024 Discontinued metoprolol tartrate (Lopressor) 100 MG tablet TAKE 1 TABLET BY MOUTH TWICE DAILY IN THE MORNING AND AT BEDTIME WITH MEALS 60 tablet 4 05/11/20 24 2024 Discontinued albuterol 108 (90 Base) MCG/ACT inhaler Inhale 2 puffs every 4 (four) hours if needed for wheezing. 18 g 09/01/20 24 2024 Discontinued(R eorder (will not trigger notification to Pharmacy)) azithromycin (Zithromax Z-Mehdi) 250 MG tablet Take 2 tabs day 1 and then 1 tab daily to finish 6 tablet 09/01/20 24 2024 Discontinued(T herapy completed) Active Problems Problem Noted Date Diagnosed Date Cough 09/28/2024 Assessment & Plan (09/28/2024 9:52 AM EST): - infectious cause ruled out - switched ACEI to ARB - likely allergic rhinitis - trial of fluticasone nasal and cetirizine ASCVD (arteriosclerotic cardiovascular disease) 01/01/2023 Assessment & Plan (04/28/2024 9:06 AM EDT): - pt does not complain chest pain or dyspnea - previously seeing [facility] railway equipment operator, but stopped because he was seeing a vascular specialist in [facility] - pt has not had any cardiology evaluation for many years. He is hesitant to be referred because of high copay. - pt is asymptomatic. Will consider referring him to railway equipment operator in [facility]. At this time, since he is asymptomatic, will continue medical management and try to optimize his chronic problems. Assessment & Plan (01/21/2024 9:19 AM EDT): - pt does not complain chest pain or dyspnea - previously seeing [facility] railway equipment operator, but stopped because he was seeing a vascular specialist in [facility] - pt has not had any cardiology evaluation for many years. He is hesitant to be referred because of high copay. - pt is asymptomatic. Will consider referring him to railway equipment operator in [facility]. At this time, since he is asymptomatic, will continue medical management and try to optimize his chronic problems. Assessment & Plan (10/27/2023 3:54 PM EST): - pt does not complain chest pain or dyspnea - previously seeing [facility] railway equipment operator, but stopped because he was seeing a vascular specialist in [facility] - pt has not had any cardiology evaluation for many years. He is hesitant to be referred because of high copay. - pt is asymptomatic. Will consider referring him to railway equipment operator in [facility]. At this time, since he is asymptomatic, will continue medical management and try to optimize his chronic problems. Assessment & Plan (07/22/2023 12:41 PM EST): - pt does not complain chest pain or dyspnea - previously seeing [facility] railway equipment operator, but stopped because he was seeing a vascular specialist in [facility] - pt has not had any cardiology evaluation for many years - pt is asymptomatic. Will consider referring him to railway equipment operator in [facility]. At this time, since he is asymptomatic, will continue medical management and try to optimize his chronic problems. Assessment & Plan (01/01/2023 10:28 AM EDT): - pt does not complain chest pain or dyspnea - previously seeing [facility] railway equipment operator, but stopped because he was seeing a vascular specialist in [facility] - pt has not had any cardiology evaluation for many years - pt is asymptomatic. Will consider referring him to railway equipment operator in [facility]. At this time, since he is asymptomatic, will continue medical management and try to optimize his chronic problems. Hypertensive renal disease 10/16/2022 Vasculopathy 10/03/2022 Assessment & Plan (07/23/2024 10:37 AM EST): Specialist: [facility] vascular -last seen on 12/26/23 -Treatment Hx: Left renal artery bypass in January 2009; Right renal artery angioplasty and stenting in November 2013; Left carotid endarterectomy in January 2016 -On dual antiplatelet therapy with Plavix and ASA. - lifelong dual antiplatelet due to renal artery stent/bypass and ileo-renal artery bypass. Most recent arterial studies -12/24/23Carotid US right side 70-99% stenosis, s/p left endarterectomy -11/20/22 Renal artery doppler showed right > 90% stenosis, Left patent stent -12/24/23 Aortobifemoral graft scan, patent graft with increased velocities, stenotic. -12/24/23 WINNIE Right 0.65; Left 0.71 ( 11/30/22 Right 0.49, left 0.61) -Continue risk factor management. -Continue surveillance study per [facility] vascular specialist Assessment & Plan (01/27/2024 6:11 AM EDT): Specialist: [facility] -last seen on 12/26/23 -Treatment Hx: Left renal artery bypass in January 2009; Right renal artery angioplasty and stenting in November 2013; Left carotid endarterectomy in January 2016 -On dual antiplatelet therapy with Plavix and ASA. - lifelong dual antiplatelet due to renal artery stent/bypass and ileo-renal artery bypass. Most recent arterial studies -12/24/23Carotid US right side 70-99% stenosis, s/p left endarterectomy -11/20/22 Renal artery doppler showed right > 90% stenosis, Left patent stent -12/24/23 Aortobifemoral graft scan, patent graft with increased velocities, stenotic. -12/24/23 WINNIE Right 0.65; Left 0.71 ( 11/30/22 Right 0.49, left 0.61) -Continue risk factor management. -Continue surveillance study per [facility] vascular specialist Assessment & Plan (10/27/2023 4:03 PM EST): Specialist: [facility] -last seen on 12/25/22 -Treatment Hx: Left renal artery bypass in January 2009; Right renal artery angioplasty and stenting in November 2013; Left carotid endarterectomy in January 2016 -On dual antiplatelet therapy with Plavix and ASA. - lifelong dual antiplatelet due to renal artery stent/bypass and ileo-renal artery bypass. Most recent arterial studies -11/20/22 Carotid US right side 70-99% stenosis, s/p left endarterectomy -11/20/22 Renal artery doppler showed right > 90% stenosis, Left patent stent -11/20/22 Aortobifemoral graft scan, patent graft with increased velocities -05/27/22 Aortobifemoral graft scan, patent graft, with increased velocity throughout, stenosis at femoral anastamosis > 75 % bilaterally -11/20/22 WINNIE Right 0.49, left 0.61 (WINNIE Right 0.57; Left 0.68 in November 2021) -Continue risk factor management. -Continue surveillance study -ISI / WINNIE and UEA doppler q6-12m -renal artery / aortobifemoral graft scan q3-6m -carotid US q9-12 m Assessment & Plan (07/22/2023 12:38 PM EST): Specialist: [facility] -last seen on 12/25/22 -Treatment Hx: Left renal artery bypass in January 2009; Right renal artery angioplasty and stenting in November 2013; Left carotid endarterectomy in January 2016 -On dual antiplatelet therapy with Plavix and ASA. - lifelong dual antiplatelet due to renal artery stent/bypass and ileo-renal artery bypass. Most recent arterial studies -11/20/22 Carotid US right side 70-99% stenosis, s/p left endarterectomy -11/20/22 Renal artery doppler showed right > 90% stenosis, Left patent stent -11/20/22 Aortobifemoral graft scan, patent graft with increased velocities -05/27/22 Aortobifemoral graft scan, patent graft, with increased velocity throughout, stenosis at femoral anastamosis > 75 % bilaterally -11/20/22 WINNIE Right 0.49, left 0.61 (WINNIE Right 0.57; Left 0.68 in November 2021) -Continue risk factor management. -Continue surveillance study -ISI / WINNIE and UEA doppler q6-12m -renal artery / aortobifemoral graft scan q3-6m -carotid US q9-12 m Assessment & Plan (10/03/2022 5:27 AM EST): -Vascular specialist: Dr. Dallas, [facility], last appt on 06/12/22 -Left renal [...] of nonautolo gous biological bypass graft of extremity 12/06/2021 Renovascular hypertension 05/18/2020 Stage 3b chronic kidney disease 05/18/2020 Assessment & Plan (09/27/2024 4:43 PM EST): -Head Lineman, NEHA Berrios, seen in 05/07/24, increased jardiance to 25 mg and recommended to increase lisinopril dose and decrease hydralazine -On ARB (losartan) and SGLT2i (empagliflozin) -Kidney failure risk : 1.7% at 1 years and 5.23% at 4 years (lab from Jul 2023) -Avoid nephrotoxic drugs/substances and behaviors, including NSAIDs use. -Maintain adequate fluid intake, appropriate BP control and electrolyte balance. -Emphasized the importance of keeping appt with medical care manager Assessment & Plan (07/23/2024 10:35 AM EST): -Head LinemanDr. Russell seen in 05/07/24, increased jardiance to 25 mg and recommended to increase lisinopril dose and decrease hydralazine -Changing lisinopril to losartan today -Avoid nephrotoxic drugs/substances and behaviors, including NSAIDs use. -Renal dosing meds, eCrCl 48; eGFR 38 -Maintain adequate fluid intake, appropriate BP control and electrolyte balance. -Emphasized the importance of keeping appt with medical care manager Assessment & Plan (04/28/2024 9:06 AM EDT): -Head LinemanDr. Russell seen in OCT 2023, next appt with a new medical care manager in Oct 2023 -Avoid nephrotoxic drugs/substances and behaviors, including NSAIDs use. -Renal dosing meds, eCrCl 48; eGFR 38 -Maintain adequate fluid intake, appropriate BP control and electrolyte balance. -Emphasized the importance of keeping appt with medical care manager Assessment & Plan (01/21/2024 9:18 AM EDT): -Head LinemanDr. Russell seen in OCT 2023, next appt with a new medical care manager in Oct 2023 -Avoid nephrotoxic drugs/substances and behaviors, including NSAIDs use. -Renal dosing meds, eCrCl 48; eGFR 38 -Maintain adequate fluid intake, appropriate BP control and electrolyte balance. -Emphasized the importance of keeping appt with medical care manager Assessment & Plan (10/27/2023 4:20 PM EST): -Head Lineman, Dr. Russell seen in March 2023, next appt with a new medical care manager in Oct 2023 -Avoid nephrotoxic drugs/substances and behaviors, including NSAIDs use. -Renal dosing meds, eCrCl 48; eGFR 38 -Maintain adequate fluid intake, appropriate BP control and electrolyte balance. -Emphasized the importance of keeping appt with medical care manager Assessment & Plan (07/22/2023 12:42 PM EST): -Head Lineman, Dr. Russell seen in March 2023, next appt with a new medical care manager in Oct 2023 - -Avoid nephrotoxic drugs/substances and behaviors, including NSAIDs use. -Renal dosing meds, eCrCl 30 -Maintain adequate fluid intake, appropriate BP control and electrolyte balance. -Emphasized the importance of keeping appt with medical care manager Assessment & Plan (03/24/2023 4:56 PM EDT): -Previous Head Lineman: Dr. Townsend, -Currently followed by Dr. Russell -02/15/22 SCr 1.79, eGFR 38, K 4.8 -Avoid nephrotoxic drugs/substances and behaviors, including NSAIDs use. -Renal dosing meds, eCrCl 30 -Maintain adequate fluid intake, appropriate BP control and electrolyte balance. -Emphasized the importance of keeping appt with medical care manager Assessment & Plan (01/01/2023 9:03 AM EDT): -Previous Head Lineman: Dr. Townsend, -Currently followed by Dr. Russell -02/15/22 SCr 1.79, eGFR 38, K 4.8 -Avoid nephrotoxic drugs/substances and behaviors, including NSAIDs use. -Renal dosing meds, eCrCl 30 -Maintain adequate fluid intake, appropriate BP control and electrolyte balance. -Emphasized the importance of keeping appt with medical care manager Assessment & Plan (10/03/2022 5:27 AM EST): -Previous Head Lineman: Dr. Townsend, -Currently followed by Dr. Russell -02/15/22 SCr 1.79, eGFR 38, K 4.8 -Avoid nephrotoxic drugs/substances and behaviors, including NSAIDs use. -Renal dosing meds, eCrCl 30 -Maintain adequate fluid intake, appropriate BP control and electrolyte balance. -Emphasized the importance of keeping appt with medical care manager Type 2 diabetes mellitus 02/27/2017 Assessment & Plan (09/28/2024 9:49 AM EST): -A1C 6.5% on 09/28/24, stable. He received prednisone in Aug 2024 -Continue working on lifestyle modification and SMBG. -Continue glipizide 20 mg bid (consider tapering down and off if he develops hypoglycemia) -Continue Jardiance 25 mg daily -previously prescribed repaglinide, but pt was not taking it -Metformin is contraindicated due to CKDIII -sitagliptin was discontinued since pt was starting SGLT-2 inhibitor -Pt refuses insulin and GLP-1 agonist -Pt adamantly refuses to see CDE RN and RD again (previously tried). -Comprehensive foot exam: Sep 2024, high-risk. Diminished sensation of b/l feet, Hx PAD -Eye exam: referred to [facility] eye care -Microalbumin test: 04/10/24 UACR 140 -Lipid profile: 07/23/23 total cholesterol 163; triglyceride 489; LDL 53; HDL 28 -Last dental exam: ? -Follow up in 3 mo. Assessment & Plan (07/23/2024 10:37 AM EST): -A1C 6.4% on 04/28/24 -Continue working on lifestyle modification and SMBG. -Continue glipizide 20 mg bid. -Continue Jardiance 10 mg daily -previously prescribed repaglinide, but pt was not taking it -Metformin is contraindicated due to CKDIII -sitagliptin was discontinued since pt was starting SGLT-2 inhibitor -Pt refuses insulin and GLP-1 agonist -Pt adamantly refuses to see CDE RN and RD again (previously tried). -Comprehensive foot exam: Jul 2023, high-risk. Diminished sensation of b/l feet, Hx PAD -Eye exam: referred to [facility] eye care -Microalbumin test: 04/10/24 UACR 140 -Lipid profile: 07/23/23 total cholesterol 163; triglyceride 489; LDL 53; HDL 28 -Last dental exam: ? -Follow up in 3 mo. Assessment & Plan (04/29/2024 9:02 AM EDT): -A1C 6.4% on 04/28/24 -Continue working on lifestyle modification and SMBG. -Continue glipizide 20 mg bid. -Continue Jardiance 10 mg daily -previously prescribed repaglinide, but pt was not taking it -Metformin is contraindicated due to CKDIII -sitagliptin was discontinued since pt was starting SGLT-2 inhibitor -Pt refuses insulin and GLP-1 agonist -Pt adamantly refuses to see CDE RN and RD again (previously tried). -Comprehensive foot exam: Jul 2023, high-risk. Diminished sensation of b/l feet, Hx PAD -Eye exam: referred to [facility] eye care -Microalbumin test: 04/10/24 UACR 140 -Lipid profile: 07/23/23 total cholesterol 163; triglyceride 489; LDL 53; HDL 28 -Last dental exam: ? -Follow up in 3 mo. Assessment & Plan (01/21/2024 9:20 AM EDT): -A1C 7.4% on 01/21/24 -Continue working on lifestyle modification and SMBG. -Continue glipizide 20 mg bid. -Continue Jardiance 10 mg daily -previously prescribed repaglinide, but pt was not taking it -Metformin is contraindicated due to CKDIII -sitagliptin was discontinued since pt was starting SGLT-2 inhibitor -Pt refuses insulin and GLP-1 agonist -Pt adamantly refuses to see CDE RN and RD again (previously tried). -Comprehensive foot exam: 07/03/22, diminished sensation of b/l feet, Hx PAD -Eye exam: referred to [facility] eye care -Microalbumin test: 07/23/23 UACR 114.7 -Lipid profile: 07/23/23 total cholesterol 163; triglyceride 489; LDL 53; HDL 28 -Last dental exam: ? -Follow up in 3 mo. Assessment & Plan (10/27/2023 4:16 PM EST): -A1C 7.4% on 10/22/23, 8.3% on 07/24/23 -Continue working on lifestyle modification and SMBG. -Continue glipizide 20 mg bid. -Continue Jardiance 10 mg daily -previously prescribed repaglinide, but pt was not taking it -Metformin is contraindicated due to CKDIII -sitagliptin was discontinued since pt was starting SGLT-2 inhibitor -Pt refuses insulin and GLP-1 agonist -Pt adamantly refuses to see CDE RN and RD again (previously tried). -Comprehensive foot exam: 07/03/22, diminished sensation of b/l feet, Hx PAD -Eye exam: referred to [facility] eye care -Microalbumin test: 07/23/23 UACR 114.7 -Lipid profile: 07/23/23 total cholesterol 163; triglyceride 489; LDL 53; HDL 28 -Last dental exam: ? -Follow up in 3 mo. Assessment & Plan (07/26/2023 7:43 AM EST): -A1C 8.3% on 07/24/23 -Continue working on lifestyle modification and SMBG. -Continue glipizide 20 mg bid. -Continue Jardiance 10 mg daily -previously prescribed repaglinide, but pt has not been taking it -Metformin is contraindicated due to CKDIII -Januvia was discontinued since pt is starting SGLT-2 inhibitor -Pt refuses insulin and GLP-1 agonist -Pt adamantly refuses to see CDE RN and RD again (previously tried). -Comprehensive foot exam: 07/03/22, diminished sensation of b/l feet, Hx PAD -Eye exam: referred to [facility] eye care -Microalbumin test: 08/17/2020 UACR 284 -Lipid profile: 07/04/22 TC 169; TG 398; HDL 32; LDL 84 -Last dental exam: ? -Follow up in 3 mo. Assessment & Plan (03/24/2023 5:00 PM EDT): -A1C 8.1% on 03/21/23 -Continue working on lifestyle modification and SMBG. -Continue glipizide 20 mg bid. -Continue Jardiance 10 mg daily -previously prescribed repaglinide, but pt has not been taking it -Metformin is contraindicated due to CKDIII -Januvia was discontinued since pt is starting SGLT-2 inhibitor -Pt refuses insulin and GLP-1 agonist -Pt adamantly refuses to see CDE RN and RD again (previously tried). -Comprehensive foot exam: 07/03/22, diminished sensation of b/l feet, Hx PAD -Eye exam: referred to [facility] eye care -Microalbumin test: 08/17/2020 UACR 284 -Lipid profile: 07/04/22 TC 169; TG 398; HDL 32; LDL 84 -Last dental exam: ? -Follow up in 3 mo. Assessment & Plan (01/01/2023 9:41 AM EDT): -A1C 8.3% on 01/01/23 today, 8.2% on 10/16/22 -Continue working on lifestyle modification and SMBG. -Continue glipizide 20 mg bid. -Continue Jardiance 10 mg daily -previously prescribed repaglinide, but pt has not been taking it -Metformin is contraindicated due to CKDIII -Januvia was discontinued since pt is starting SGLT-2 inhibitor -Pt refuses insulin and GLP-1 agonist -Pt adamantly refuses to see CDE RN and RD again (previously tried). -Comprehensive foot exam: 07/03/22, diminished sensation of b/l feet, Hx PAD -Eye exam: referred to [facility] eye care -Microalbumin test: 08/17/2020 UACR 284 -Lipid profile: 07/04/22 TC 169; TG 398; HDL 32; LDL 84 -Last dental exam: ? Assessment & Plan (10/16/2022 9:17 AM EST): -A1C 8.2% on 10/16/22 -Continue working on lifestyle modification and SMBG. -Continue glipizide 20 mg bid. -Continue Jardiance 10 mg daily -previously prescribed repaglinide, but pt has not been taking it -Metformin is contraindicated due to CKDIII -Januvia was discontinued since pt is starting SGLT-2 inhibitor -Pt refuses insulin and GLP-1 agonist -Pt adamantly refuses to see CDE RN and RD again (previously tried). -Comprehensive foot exam: 07/03/22, diminished sensation of b/l feet, Hx PAD -Eye exam: referred to [facility] eye care -Microalbumin test: 08/17/2020 UACR 284 -Lipid profile: 07/04/22 TC 169; TG 398; HDL 32; LDL 84 -Last dental exam: ? Assessment & Plan (10/03/2022 5:19 AM EST): -A1C -Continue working on lifestyle modification and SMBG. -Continue glipizide 20 mg bid. -Continue Jardiance 10 mg daily -previously prescribed repaglinide, but pt has not been taking it -Metformin is contraindicated due to CKDIII -Januvia was discontinued since pt is starting SGLT-2 inhibitor -Pt refuses insulin and GLP-1 agonist -Pt adamantly refuses to see CDE RN and RD again (previously tried). -Comprehensive foot exam: 07/03/22, diminished sensation of b/l feet, Hx PAD -Eye exam: referred to [facility] eye care -Microalbumin test: 08/17/2020 UACR 284 -Lipid profile: 07/04/22 TC 169; TG 398; HDL 32; LDL 84 -Last dental exam: ? Carotid artery stenosis 03/29/2016 Assessment & Plan (09/27/2024 4:33 PM EST): Followed by [facility] vascular team, last seen in December 2023 -s/p left carotid endarterectomy in January 2016 -Recent carotid doppler studies: 12/24/23 Carotid US - Right 70-99%; left s/p CEA 11/20/22 Carotid US - Right 70-99%; left s/p CEA 11/23/21 Carotid US - Right 50-69%; Left 50-69% 03/13/21 Carotid US- Right 70-99%; Left 1-49% s/p left CEA. -Continue risk factor management. Assessment & Plan (07/23/2024 10:37 AM EST): Followed by [facility] vascular team, last seen on 06/12/22 -s/p left carotid endarterectomy in January 2016 -Recent carotid doppler studies: 12/24/23 Carotid US - Right 70-99%; left s/p CEA 11/20/22 Carotid US - Right 70-99%; left s/p CEA 11/23/21 Carotid US - Right 50-69%; Left 50-69% 03/13/21 Carotid US- Right 70-99%; Left 1-49% s/p left CEA. -Continue risk factor management. Assessment & Plan (04/28/2024 9:06 AM EDT): Followed by [facility] vascular team, last seen on 06/12/22 -s/p left carotid endarterectomy in January 2016 -Recent carotid doppler studies: 12/24/23 Carotid US - Right 70-99%; left s/p CEA 11/20/22 Carotid US - Right 70-99%; left s/p CEA 11/23/21 Carotid US - Right 50-69%; Left 50-69% 03/13/21 Carotid US- Right 70-99%; Left 1-49% s/p left CEA. -Continue risk factor management. Assessment & Plan (01/27/2024 6:12 AM EDT): Followed by [facility] vascular team, last seen on 06/12/22 -s/p left carotid endarterectomy in January 2016 -Recent carotid doppler studies: 12/24/23 Carotid US - Right 70-99%; left s/p CEA 11/20/22 Carotid US - Right 70-99%; left s/p CEA 11/23/21 Carotid US - Right 50-69%; Left 50-69% 03/13/21 Carotid US- Right 70-99%; Left 1-49% s/p left CEA. -Continue risk factor management. Assessment & Plan (10/27/2023 4:01 PM EST): Followed by [facility] vascular team, last seen on 06/12/22 -s/p left carotid endarterectomy in January 2016 -Recent carotid doppler studies: 11/20/22 Carotid US - Right 70-99%; left s/p CEA 11/23/21 Carotid US - Right 50-69%; Left 50-69% 03/13/21 Carotid US- Right 70-99%; Left 1-49% s/p left CEA. -Continue risk factor management. -Next carotid US was supposed to be in March 2023, but pt states he was not contacted or given a follow up appointment -We called the office during the visit, and he will call to schedule an appointment. Assessment & Plan (07/26/2023 7:44 AM EST): Followed by [facility] vascular team, last seen on 06/12/22 -s/p left carotid endarterectomy in January 2016 -Recent carotid doppler studies: 11/20/22 Carotid US - Right 70-99%; left s/p CEA 11/23/21 Carotid US - Right 50-69%; Left 50-69% 03/13/21 Carotid US- Right 70-99%; Left 1-49% s/p left CEA. -Continue risk factor management. -Next carotid US in March 2023, but pt states he was not contacted or given a follow up appt; will call the office. Assessment & Plan (03/24/2023 4:56 PM EDT): Followed by [facility] vascular team, last seen on 06/12/22 -s/p left carotid endarterectomy in January 2016 -Recent carotid doppler studies: 11/20/22 Carotid US - Right 70-99%; left s/p CEA 11/23/21 Carotid US - Right 50-69%; Left 50-69% 03/13/21 Carotid US- Right 70-99%; Left 1-49% s/p left CEA. -Continue risk factor management. -Next carotid US in March 2023 Assessment & Plan (01/01/2023 9:52 AM EDT): Followed by [facility] vascular team, last seen on 06/12/22 -s/p left carotid endarterectomy in January 2016 -Recent carotid doppler studies: 11/20/22 Carotid US - Right 70-99%; left s/p CEA 11/23/21 Carotid US - Right 50-69%; Left 50-69% 03/13/21 Carotid US- Right 70-99%; Left 1-49% s/p left CEA. -Continue risk factor management. -Next carotid US in February 2023 Assessment & Plan (10/16/2022 9:18 AM EST): Followed by [facility] vascular team, last seen on 06/12/22 -s/p left carotid endarterectomy in January 2016 -Recent carotid doppler studies: 11/23/21 Carotid US - Right 50-69%; Left 50-69% 03/13/21 Carotid US- Right 70-99%; Left 1-49% s/p left CEA. -Continue risk factor management. -Next carotid US in Aug 2022 Assessment & Plan (10/03/2022 5:22 AM EST): Followed by [facility] vascular team, last seen on 06/12/22 -s/p left carotid endarterectomy in January 2016 -Recent carotid doppler studies: 11/23/21 Carotid US - Right 50-69%; Left 50-69% 03/13/21 Carotid US- Right 70-99%; Left 1-49% s/p left CEA. -Continue risk factor management. -Next carotid US in Aug 2022 Hypertension 01/09/2016 Assessment & Plan (09/28/2024 9:47 AM EST): - primary and renovascular - Goal BP < 140/90 per JNC-8, < 130/80 per ACC/AHA - At goal today - Check BP on R arm due to L subclavian artery stenosis. - Associated conditions: Renal artery stenosis and peripheral vascular disease, s/p left renal artery stent/bypass. s/p L carotid endarterectomy. - Continue working on lifestyle modifications. - Continue metoprolol tartrate 100 mg bid - Continue hydralazine to 100 mg bid, consider tapering down and off - Continue amlodipine 10mg daily - Continue losartan 12.5 mg daily - Called medical care manager's office and requested AMBP 24-hour. - Follow-up in 3 mo or sooner prn Assessment & Plan (07/23/2024 10:36 AM EST): - primary and renovascular - Goal BP < 140/90 per JNC-8, < 130/80 per ACC/AHA - At goal today - Check BP on R arm due to L subclavian artery stenosis. - Associated conditions: Renal artery stenosis and peripheral vascular disease, s/p left renal artery stent/bypass. s/p L carotid endarterectomy. - Continue working on lifestyle modifications. - Continue metoprolol tartrate 100 mg bid - Continue hydralazine to 100 mg bid, consider tapering down and off - Continue amlodipine 10mg daily - Switch lisinopril 2.5 mg daily (started by medical care manager) to losartan 12.5 mg daily - Called medical care manager's office and requested AMBP 24-hour. - Follow-up in 3 mo or sooner prn Assessment & Plan (04/28/2024 9:21 AM EDT): - primary and renovascular - Goal BP < 140/90 per JNC-8, < 130/80 per ACC/AHA - At goal today - Check BP on R arm due to L subclavian artery stenosis. - Associated conditions: Renal artery stenosis and peripheral vascular disease, s/p left renal artery stent/bypass. s/p L carotid endarterectomy. - Continue working on lifestyle modifications. - Continue metoprolol tartrate 100 mg bid - Continue hydralazine to 100 mg bid - Continue amlodipine 10mg daily - Continue lisinopril 2.5 mg daily (started by medical care manager) - Called medical care manager's office and requested AMBP 24-hour. - Follow-up in 3 mo or sooner prn Assessment & Plan (01/21/2024 9:19 AM EDT): - primary and renovascular - Goal BP < 140/90 per JNC-8, < 130/80 per ACC/AHA - not at goal today, at home BP elevated - Check BP on R arm due to L subclavian artery stenosis. - Associated conditions: Renal artery stenosis and peripheral vascular disease, s/p left renal artery stent/bypass. s/p L carotid endarterectomy. - Continue working on lifestyle modifications. - Continue metoprolol tartrate 100 mg bid - Continue hydralazine to 100 mg bid - Continue amlodipine 10mg daily - Continue lisinopril 2.5 mg daily (started by medical care manager) - Called medical care manager's office and requested AMBP 24-hour. - Follow-up in 3 mo or sooner prn Assessment & Plan (10/27/2023 4:02 PM EST): - primary and renovascular - Goal BP < 140/90 per JNC-8, < 130/80 per ACC/AHA - not at goal today, at home BP elevated - Check BP on R arm due to L subclavian artery stenosis. - Associated conditions: Renal artery stenosis and peripheral vascular disease, s/p left renal artery stent/bypass. s/p L carotid endarterectomy. - Continue working on lifestyle modifications. - Continue metoprolol tartrate 100 mg bid - Continue hydralazine to 100 mg bid - Continue amlodipine 10mg daily - Continue lisinopril 2.5 mg daily (started by medical care manager) - Called medical care manager's office and requested AMBP 24-hour. - Follow-up in 3 mo or sooner prn Assessment & Plan (07/22/2023 12:40 PM EST): - primary and renovascular - Goal BP < 140/90 per JNC-8, < 130/80 per ACC/AHA - not at goal today, at home BP elevated - Check BP on R arm due to L subclavian artery stenosis. - Associated conditions: Renal artery stenosis and peripheral vascular disease, s/p left renal artery stent/bypass. s/p L carotid endarterectomy. - Continue working on lifestyle modifications. - Continue metoprolol tartrate 100 mg bid - Continue hydralazine to 100 mg bid - Continue amlodipine 10mg daily - Continue lisinopril 2.5 mg daily (started by medical care manager) - Called medical care manager's office and requested AMBP 24-hour. - Follow-up in 3 mo or sooner prn Assessment & Plan (03/24/2023 4:56 PM EDT): - primary and renovascular - Goal BP < 140/90 per JNC-8, < 130/80 per ACC/AHA - not at goal today, at home BP elevated - Check BP on R arm due to L subclavian artery stenosis. - Associated conditions: Renal artery stenosis and peripheral vascular disease, s/p left renal artery stent/bypass. s/p L carotid endarterectomy. - Continue working on lifestyle modifications. - Continue metoprolol tartrate 100 mg bid - Continue hydralazine to 100 mg bid - Continue amlodipine 10mg daily - Continue lisinopril 2.5 mg daily (started by medical care manager) - Called medical care manager's office and requested AMBP 24-hour. - Follow-up in 3 mo or sooner prn Assessment & Plan (01/01/2023 9:02 AM EDT): - primary and renovascular - Goal BP < 140/90 per JNC-8, < 130/80 per ACC/AHA - not at goal today, at home BP elevated - Check BP on R arm due to L subclavian artery stenosis. - Associated conditions: Renal artery stenosis and peripheral vascular disease, s/p left renal artery stent/bypass. s/p L carotid endarterectomy. - Continue working on lifestyle modifications. - Pt started taking 2.5 mg Lisinopril daily, prescribed by his Head Lineman. Will consult Head Lineman regarding to his AMBP monitoring and BP management. - Continue metoprolol tartrate 100 mg bid - Increase hydralazine to 100 mg bid - Continue amlodipine 10mg daily - Follow-up in 3 mo or sooner prn Assessment & Plan (10/16/2022 9:26 AM EST): - primary and renovascular - Goal BP < 140/90 per JNC-8, < 130/80 per ACC/AHA - not at goal today, at home BP elevated - Check BP on R arm due to L subclavian artery stenosis. - Associated conditions: Renal artery stenosis and peripheral vascular disease, s/p left renal artery stent/bypass. s/p L carotid endarterectomy. - Continue working on lifestyle modifications. - Pt started taking 2.5 mg Lisinopril daily, prescribed by his Head Lineman. Will consult Head Lineman regarding to his AMBP monitoring and BP management. - Continue metoprolol tartrate 100 mg bid - Increase hydralazine to 100 mg bid - Continue amlodipine 10mg daily - Follow-up in 3 mo or sooner prn Assessment & Plan (10/03/2022 5:16 AM EST): - primary and renovascular - Goal BP < 140/90 per JNC-8, < 130/80 per ACC/AHA - - Check BP on R arm due to L subclavian artery stenosis. - Associated conditions: Renal artery stenosis and peripheral vascular disease, s/p left renal artery stent/bypass. s/p L carotid endarterectomy. - Continue working on lifestyle modifications. - Pt started taking 2.5 mg Lisinopril daily, prescribed by his Head Lineman. Will consult Head Lineman regarding to his AMBP monitoring and BP management. - Continue metoprolol tartrate 100 mg bid - Continue hydralazine to 75 mg bid - Continue amlodipine 10mg daily - Follow-up in 3 mo or sooner prn Dyslipidemia 03/14/2015 Assessment & Plan (09/28/2024 9:02 AM EST): Current medications: atorvastatin 80 mg qhs; Fish oil 2 g daily Last lipid profile: 07/23/23 total cholesterol 163; triglyceride 489; LDL 53; HDL 28 Continue high-intensity statin therapy. Consider adding Zetia. Assessment & Plan (07/23/2024 10:38 AM EST): Current medications: atorvastatin 80 mg qhs; Fish oil 2 g daily Last lipid profile: 07/23/23 total cholesterol 163; triglyceride 489; LDL 53; HDL 28 Continue high-intensity statin therapy. Consider adding Zetia. Assessment & Plan (04/28/2024 9:07 AM EDT): Current medications: atorvastatin 80 mg qhs; Fish oil 2 g daily Last lipid profile: 07/23/23 total cholesterol 163; triglyceride 489; LDL 53; HDL 28 Continue high-intensity statin therapy. Consider adding Zetia. Assessment & Plan (01/21/2024 9:20 AM EDT): Current medications: atorvastatin 80 mg qhs; Fish oil 2 g daily Last lipid profile: 07/23/23 total cholesterol 163; triglyceride 489; LDL 53; HDL 28 Continue high-intensity statin therapy. Consider adding Zetia. Assessment & Plan (10/27/2023 4:17 PM EST): Current medications: atorvastatin 80 mg qhs; Fish oil 2 g daily Last lipid profile: 07/23/23 total cholesterol 163; triglyceride 489; LDL 53; HDL 28 Continue high-intensity statin therapy. Consider adding Zetia. Assessment & Plan (07/22/2023 12:44 PM EST): Current medications: atorvastatin 80 mg qhs; Fish oil 2 g daily Last lipid profile: 07/04/22 TC 169; TG 398; HDL 32; LDL 84 Continue high-intensity statin therapy. Consider adding Zetia. Assessment & Plan (03/24/2023 5:00 PM EDT): Current medications: atorvastatin 20 mg qhs; Fish oil 2 g daily Last lipid profile: 07/04/22 TC 169; TG 398; HDL 32; LDL 84 Continue high-intensity statin therapy. Consider increasing atorvastatin. Assessment & Plan (01/01/2023 9:01 AM EDT): Current medications: atorvastatin 20 mg qhs; Fish oil 2 g daily Last lipid profile: 07/04/22 TC 169; TG 398; HDL 32; LDL 84 Continue high-intensity statin therapy. Consider increasing atorvastatin. Assessment & Plan (10/21/2022 4:50 PM EST): Current medications: atorvastatin 20 mg qhs; Fish oil 2 g daily Last lipid profile: 07/04/22 TC 169; TG 398; HDL 32; LDL 84 Continue high-intensity statin therapy. Consider increasing atorvastatin. Assessment & Plan (10/03/2022 5:21 AM EST): Current medications: atorvastatin 20 mg qhs; Fish oil 2 g daily Last lipid profile: 07/04/22 TC 169; TG 398; HDL 32; LDL 84 Continue high-intensity statin therapy. Consider adding Zetia. Hypertriglyceridemia 12/09/2014 Assessment & Plan (09/28/2024 9:03 AM EST): Current medications: atorvastatin 20 mg qhs; Fish oil 2 g daily Last lipid profile: 07/23/23 total cholesterol 163; triglyceride 489; LDL 53; HDL 28 Continue high-intensity statin therapy. Consider adding Zetia. Assessment & Plan (07/23/2024 10:38 AM EST): Current medications: atorvastatin 20 mg qhs; Fish oil 2 g daily Last lipid profile: 07/23/23 total cholesterol 163; triglyceride 489; LDL 53; HDL 28 Continue high-intensity statin therapy. Consider adding Zetia. Assessment & Plan (04/28/2024 9:07 AM EDT): Current medications: atorvastatin 20 mg qhs; Fish oil 2 g daily Last lipid profile: 07/23/23 total cholesterol 163; triglyceride 489; LDL 53; HDL 28 Continue high-intensity statin therapy. Consider adding Zetia. Assessment & Plan (01/21/2024 9:20 AM EDT): Current medications: atorvastatin 20 mg qhs; Fish oil 2 g daily Last lipid profile: 07/23/23 total cholesterol 163; triglyceride 489; LDL 53; HDL 28 Continue high-intensity statin therapy. Consider adding Zetia. Assessment & Plan (10/27/2023 4:18 PM EST): Current medications: atorvastatin 20 mg qhs; Fish oil 2 g daily Last lipid profile: 07/23/23 total cholesterol 163; triglyceride 489; LDL 53; HDL 28 Continue high-intensity statin therapy. Consider adding Zetia. Assessment & Plan (07/22/2023 12:43 PM EST): Current medications: atorvastatin 20 mg qhs; Fish oil 2 g daily Last lipid profile: 07/04/22 TC 169; TG 398; HDL 32; LDL 84 Continue high-intensity statin therapy. Consider adding Zetia. Assessment & Plan (03/24/2023 5:00 PM EDT): Current medications: atorvastatin 20 mg qhs; Fish oil 2 g daily Last lipid profile: 07/04/22 TC 169; TG 398; HDL 32; LDL 84 Continue high-intensity statin therapy. Consider adding Zetia. Assessment & Plan (01/01/2023 9:02 AM EDT): Current medications: atorvastatin 20 mg qhs; Fish oil 2 g daily Last lipid profile: 07/04/22 TC 169; TG 398; HDL 32; LDL 84 Continue high-intensity statin therapy. Consider adding Zetia. Assessment & Plan (10/16/2022 9:18 AM EST): Current medications: atorvastatin 20 mg qhs; Fish oil 2 g daily Last lipid profile: 07/04/22 TC 169; TG 398; HDL 32; LDL 84 Continue high-intensity statin therapy. Consider adding Zetia. Assessment & Plan (10/03/2022 5:21 AM EST): Current medications: atorvastatin 20 mg qhs; Fish oil 2 g daily Last lipid profile: 07/04/22 TC 169; TG 398; HDL 32; LDL 84 Continue high-intensity statin therapy. Consider adding Zetia. Gastroesophageal reflux disease 06/11/2012 Obesity 06/11/2012 Peripheral arterial occlusive disease 06/11/2012 Assessment & Plan (09/28/2024 9:01 AM EST): Specialist: [facility] -last seen on 12/26/23 -Treatment Hx: Left renal artery bypass in January 2009; Right renal artery angioplasty and stenting in November 2013; Left carotid endarterectomy in January 2016 -On dual antiplatelet therapy with Plavix and ASA. - lifelong dual antiplatelet due to renal artery stent/bypass and ileo-renal artery bypass. Most recent arterial studies -12/24/23Carotid US right side 70-99% stenosis, s/p left endarterectomy -11/20/22 Renal artery doppler showed right > 90% stenosis, Left patent stent -12/24/23 Aortobifemoral graft scan, patent graft with increased velocities, stenotic. -12/24/23 WINNIE Right 0.65; Left 0.71 ( 11/30/22 Right 0.49, left 0.61) -Continue risk factor management. -Continue surveillance study per [facility] vascular specialist Assessment & Plan (07/23/2024 10:37 AM EST): Specialist: [facility] -last seen on 12/26/23 -Treatment Hx: Left renal artery bypass in January 2009; Right renal artery angioplasty and stenting in November 2013; Left carotid endarterectomy in January 2016 -On dual antiplatelet therapy with Plavix and ASA. - lifelong dual antiplatelet due to renal artery stent/bypass and ileo-renal artery bypass. Most recent arterial studies -12/24/23Carotid US right side 70-99% stenosis, s/p left endarterectomy -11/20/22 Renal artery doppler showed right > 90% stenosis, Left patent stent -12/24/23 Aortobifemoral graft scan, patent graft with increased velocities, stenotic. -12/24/23 WINNIE Right 0.65; Left 0.71 ( 11/30/22 Right 0.49, left 0.61) -Continue risk factor management. -Continue surveillance study per [facility] vascular specialist Assessment & Plan (04/28/2024 9:06 AM EDT): Specialist: [facility] -last seen on 12/26/23 -Treatment Hx: Left renal artery bypass in January 2009; Right renal artery angioplasty and stenting in November 2013; Left carotid endarterectomy in January 2016 -On dual antiplatelet therapy with Plavix and ASA. - lifelong dual antiplatelet due to renal artery stent/bypass and ileo-renal artery bypass. Most recent arterial studies -12/24/23Carotid US right side 70-99% stenosis, s/p left endarterectomy -11/20/22 Renal artery doppler showed right > 90% stenosis, Left patent stent -12/24/23 Aortobifemoral graft scan, patent graft with increased velocities, stenotic. -12/24/23 WINNIE Right 0.65; Left 0.71 ( 11/30/22 Right 0.49, left 0.61) -Continue risk factor management. -Continue surveillance study per [facility] vascular specialist Assessment & Plan (01/27/2024 6:11 AM EDT): Specialist: [facility] -last seen on 12/26/23 -Treatment Hx: Left renal artery bypass in January 2009; Right renal artery angioplasty and stenting in November 2013; Left carotid endarterectomy in January 2016 -On dual antiplatelet therapy with Plavix and ASA. - lifelong dual antiplatelet due to renal artery stent/bypass and ileo-renal artery bypass. Most recent arterial studies -12/24/23Carotid US right side 70-99% stenosis, s/p left endarterectomy -11/20/22 Renal artery doppler showed right > 90% stenosis, Left patent stent -12/24/23 Aortobifemoral graft scan, patent graft with increased velocities, stenotic. -12/24/23 WINNIE Right 0.65; Left 0.71 ( 11/30/22 Right 0.49, left 0.61) -Continue risk factor management. -Continue surveillance study per [facility] vascular specialist Assessment & Plan (10/27/2023 4:03 PM EST): Specialist: Dr. Burt Low vascular -last seen on 06/12/2022 -Treatment Hx: Left renal artery bypass in January 2009; Right renal artery angioplasty and stenting in November 2013; Left carotid endarterectomy in January 2016 -On dual antiplatelet therapy with Plavix and ASA. - lifelong dual antiplatelet due to renal artery stent/bypass and ileo-renal artery bypass. Most recent arterial studies -11/20/22 Carotid US right side 70-99% stenosis, s/p left endarterectomy -11/20/22 Renal artery doppler showed right > 90% stenosis, Left patent stent -11/20/22 Aortobifemoral graft scan, patent graft with increased velocities -05/27/22 Aortobifemoral graft scan, patent graft, with increased velocity throughout, stenosis at femoral anastamosis > 75 % bilaterally -11/20/22 WINNIE Right 0.49, left 0.61 (WINNIE Right 0.57; Left 0.68 in November 2021) -Continue risk factor management. -Continue surveillance study -ISI / WINNIE and UEA doppler q6-12m -renal artery / aortobifemoral graft scan q3-6m -carotid US q9-12 m -Patient will call to reschedule vascular studies and appointment with Dr. Dallas Assessment & Plan (07/22/2023 12:40 PM EST): Specialist: Dr. Burt Low vascular -last seen on 06/12/2022 -Treatment Hx: Left renal artery bypass in January 2009; Right renal artery angioplasty and stenting in November 2013; Left carotid endarterectomy in January 2016 -On dual antiplatelet therapy with Plavix and ASA. - lifelong dual antiplatelet due to renal artery stent/bypass and ileo-renal artery bypass. Most recent arterial studies -11/20/22 Carotid US right side 70-99% stenosis, s/p left endarterectomy -11/20/22 Renal artery doppler showed right > 90% stenosis, Left patent stent -11/20/22 Aortobifemoral graft scan, patent graft with increased velocities -05/27/22 Aortobifemoral graft scan, patent graft, with increased velocity throughout, stenosis at femoral anastamosis > 75 % bilaterally -11/20/22 WINNIE Right 0.49, left 0.61 (WINNIE Right 0.57; Left 0.68 in November 2021) -Continue risk factor management. -Continue surveillance study -ISI / WINNIE and UEA doppler q6-12m -renal artery / aortobifemoral graft scan q3-6m -carotid US q9-12 m Assessment & Plan (03/24/2023 4:54 PM EDT): Specialist: Dr. Dallas [facility] vascular -last seen on 06/12/2022 -Treatment Hx: Left renal artery bypass in January 2009; Right renal artery angioplasty and stenting in November 2013; Left carotid endarterectomy in January 2016 -On dual antiplatelet therapy with Plavix and ASA. - lifelong dual antiplatelet due to renal artery stent/bypass and ileo-renal artery bypass. Most recent arterial studies -11/20/22 Carotid US right side 70-99% stenosis, s/p left endarterectomy -11/20/22 Renal artery doppler showed right > 90% stenosis, Left patent stent -11/20/22 Aortobifemoral graft scan, patent graft with increased velocities -05/27/22 Aortobifemoral graft scan, patent graft, with increased velocity throughout, stenosis at femoral anastamosis > 75 % bilaterally -11/20/22 WINNIE Right 0.49, left 0.61 (WINNIE Right 0.57; Left 0.68 in November 2021) -Continue risk factor management. -Continue surveillance study -ISI / WINNIE and UEA doppler q6-12m -renal artery / aortobifemoral graft scan q3-6m -carotid US q9-12 m Assessment & Plan (01/01/2023 9:51 AM EDT): Specialist: Dr. Burt Low vascular -last seen on 06/12/2022 -Treatment Hx: Left renal artery bypass in January 2009; Right renal artery angioplasty and stenting in November 2013; Left carotid endarterectomy in January 2016 -On dual antiplatelet therapy with Plavix and ASA. - lifelong dual antiplatelet due to renal artery stent/bypass and ileo-renal artery bypass. Most recent arterial studies -11/20/22 Carotid US right side 70-99% stenosis, s/p left endarterectomy -11/20/22 Renal artery doppler showed right > 90% stenosis, Left patent stent -11/20/22 Aortobifemoral graft scan, patent graft with increased velocities -05/27/22 Aortobifemoral graft scan, patent graft, with increased velocity throughout, stenosis at femoral anastamosis > 75 % bilaterally -11/20/22 WINNIE Right 0.49, left 0.61 (WINNIE Right 0.57; Left 0.68 in November 2021) -Continue risk factor management. -Continue surveillance study -ISI / WINNIE and UEA doppler q6-12m -renal artery / aortobifemoral graft scan q3-6m -carotid US q9-12 m Assessment & Plan (10/16/2022 9:17 AM EST): Specialist: Dr. Burt Low vascular -last seen on 06/12/2022 -Treatment Hx: [...] graft scan q3-6m -carotid US q9-12 m Assessment & Plan (10/03/2022 5:23 AM EST): Specialist: Dr. Dallas [facility] vascular -last seen on 06/12/2022 -Treatment Hx: [...] graft scan q3-6m -carotid US q9-12 m Renal artery stenosis 06/11/2012 Assessment & Plan (10/27/2023 4:03 PM EST): Treatment Hx: Left renal artery bypass in January 2009; Right renal artery angioplasty and stenting in November 2013 -On dual antiplatelet therapy with Plavix and ASA. -Prolonged / lifelong DAPT due to renal artery stent/bypass and ileo-renal artery bypass. -06/04/22 aortobifemoral graft scan showed patent graft with increased velocities throughout; stenosis at femoral anastomosis > 75% b/l. -11/30/22 renal artery doppler shows > 60% stenosis R-side, patent L renal artery stent. -12/19/22 Aortoiliac duplex - bypass graft is obscured by gas, distal anastomoses showed elevated velocities -continue risk factor management -continue diligent check on si/sx PAD -continue surveillance study Assessment & Plan (07/22/2023 12:39 PM EST): Treatment Hx: Left renal artery bypass in January 2009; Right renal artery angioplasty and stenting in November 2013 -On dual antiplatelet therapy with Plavix and ASA. -Prolonged / lifelong DAPT due to renal artery stent/bypass and ileo-renal artery bypass. -06/04/22 aortobifemoral graft scan showed patent graft with increased velocities throughout; stenosis at femoral anastomosis > 75% b/l. -11/30/22 renal artery doppler shows > 60% stenosis R-side, patent L renal artery stent. -12/19/22 Aortoiliac duplex - bypass graft is obscured by gas, distal anastomoses showed elevated velocities -continue risk factor management -continue diligent check on si/sx PAD -continue surveillance study Assessment & Plan (01/01/2023 9:46 AM EDT): Treatment Hx: Left renal artery bypass in January 2009; Right renal artery angioplasty and stenting in November 2013 -On dual antiplatelet therapy with Plavix and ASA. -Prolonged / lifelong DAPT due to renal artery stent/bypass and ileo-renal artery bypass. -06/04/22 aortobifemoral graft scan showed patent graft with increased velocities throughout; stenosis at femoral anastomosis > 75% b/l. -11/30/22 renal artery doppler shows > 60% stenosis R-side, patent L renal artery stent. -12/19/22 Aortoiliac duplex - bypass graft is obscured by gas, distal anastomoses showed elevated velocities -continue risk factor management -continue diligent check on si/sx PAD -continue surveillance study Assessment & Plan (10/16/2022 9:17 AM EST): Treatment Hx: Left renal artery bypass in January 2009; Right renal artery angioplasty and stenting in November 2013 -On dual antiplatelet therapy with Plavix and ASA. -Prolonged / lifelong DAPT due to renal artery stent/bypass and ileo-renal artery bypass. -06/04/22 aortobifemoral graft scan showed patent graft with increased velocities throughout; stenosis at femoral anastomosis > 75% b/l. -continue risk factor management -continue diligent check on si/sx PAD -continue surveillance study Assessment & Plan (10/03/2022 5:22 AM EST): Treatment Hx: Left renal artery bypass in January 2009; Right renal artery angioplasty and stenting in November 2013 -On dual antiplatelet therapy with Plavix and ASA. -Prolonged / lifelong DAPT due to renal artery stent/bypass and ileo-renal artery bypass. -06/04/22 aortobifemoral graft scan showed patent graft with increased velocities throughout; stenosis at femoral anastomosis > 75% b/l. -continue risk factor management -continue diligent check on si/sx PAD -continue surveillance study Subclavian artery stenosis 06/11/2012 Incipient senile cataract 04/11/2012 Resolved Problems Problem Noted Date Diagnosed Date Resolved Date Chronic obstructive pulmonary disease 12/06/2021 07/22/2023 Renal arterial hypertension 12/13/2020 10/16/2022 Encounters Date Type Department Care Team Description 10/14/2024 10:40 AM EST Office Visit [facility] [address] [place] [phone] Viral URI 10/12/2024 Orders Only [facility] [address] [place] [address] Keturah Hawley MD Subacute cough (Primary Dx) 10/04/[address] [address] Keturah Hawley MD 10/03/2024 Refill [facility] [address] [place], [place] [phone] Keturah Hawley MD 09/28/2024 9:00 AM EST Office Visit [address] [address] Keturah Hawley MD Hypertension, unspecified type (Primary Dx); Type 2 diabetes mellitus with stage 4 chronic kidney disease, without long-term current use of insulin ([facility]); Stage 3b chronic kidney disease ([facility]); Dyslipidemia; Hypertriglyceridemia; Peripheral arterial occlusive disease ([facility]); Bilateral carotid artery stenosis; Trigger finger, left ring finger; Subacute cough 09/28/2024 Travel 09/24/2024 Telephone [facility] [address] [place] [address] Aggie Gabriel MA chart prep 09/01/2024 8:40 AM EST Office Visit [facility] [address] [address] Meredith Gamboa MD Acute bronchitis, unspecified organism 08/31/2024 Orders Only [address] [phone] Keturah Hawley MD Type 2 diabetes mellitus without complications (CMS/HCC) 08/24/2024 Travel 08/18/[address] [address] Ngoiz Brothers RN DM Testing Supplies; Paperwork/Forms 07/27/[address] [address] Esperanza Rodriguez RN CDTM Referral 07/23/2024 10:00 AM EST Office Visit [address] [address] Keturah Hawley MD Type 2 diabetes mellitus with stage 4 chronic kidney disease, without long-term current use of insulin (CMS/HCC) (Primary Dx); Hypertension, unspecified type; Stage 3b chronic kidney disease (CMS/HCC); Dyslipidemia; Hypertriglyceridemia; Skin lesion of face; Cough, unspecified type; Encounter for immunization; Screening for colon cancer 07/23/2024 Travel 07/20/[address] [address] Keturah Hawley MD Appointment Confirmation 07/15/2024 Patient Outreach [address] [address] Keturah Hawley MD Pre-visit Planning ([facility] screening was completed on 01/21/2024) from Last 3 Months Immunizations Name Administration Dates Next Due Hep B, adult 07/01/2008,02/25/2008,01/22/2008 Influenza High-dose Quadriva lent Preservative Free 07/04/2022,06/14/2021,07/12/2020 Influenza injectable quadriv alent IIV4 with preservative 07/05/2016 Influenza injectable quadriv alent preservative free 07/23/2023,09/04/2018,06/17/2015 Influenza, High Dose Seasona l, Preservative Free 07/15/2019,06/20/2017,06/20/2015 Influenza, IIV3, injectable 06/07/2014,0 06/11/2011,05/12/2010,06/03,07/09/2008 Influenza, Split (incl. sathya fied surface antigen) 06/24/2013,06/11/2012 Influenza, seasonal, injecta ble, preservative free 07/23/2024 Pneumococcal Conjugate PCV 13 12/09/2014 Pneumococcal Conjugate PCV 20 10/22/2023 Pneumococcal Polysaccharide PPSV23 01/18/2014, TD (adult), 2 Lf tetanus tox oid, preservative free, adsorbed 07/04/2022,10/17/2007 Tdap 01/16/2012 Zoster, Recombinant 03/30/2020,10/12/2019 Zoster, live 03/30/2020,10/12/2019,12/09/2014 Social History Tobacco Use Types Packs/Day Years Used Date Smoking Tobacco: Former Cigarettes Q uit: 12/19/2008 Passive Smoke Exposure: Past Smokeless Tobacco: Never Tobacco Cessation:Counseling Given: Not Answered Depression Answer Date Recorded Patient Health Questionnaire-9 [...] Orientation Straight 07/16/2022 10 :19 AM EDT Last Filed Vital Signs Vital Sign Reading Time Taken Comments Blood Pressure 124/59 10/14/2024 11:00 AM EST Pulse 57 10/14/2024 11:00 AM EST Temperature 35.9 ??C (96.7 ??F) 10/14/2024 11:[address] Respiratory Rate 16 10/14/2024 11:00 AM EST Oxygen Saturation 95% 10/14/2024 11:00 AM EST Inhaled Oxygen Concentration - - Weight 83.9 kg (185 lb) 10/14/2024 11:00 AM EST Height 167.6 cm (5' 6 ) 09/28/2024 9:02 AM EST Body Mass Index 29.86 09/28/2024 9:02 AM EST Plan of Treatment Upcoming Encounters Date Type Department Care Team (Late st Contact Info) Description 10/23/2024 2:00 PM EST Office Visit [facility] [address] [place] [address] Ro Galan MD [address] [place] [address] 10/26/2024 10:30 AM EST Medication Management [address] [address] Lucio Sutton, PharmD [address] [place] [address] Health Maintenance Due Date Last Done Comments CT Colonography 1950 Colonoscopy 1950 Colorectal Cancer Screening 1950 FIT DNA/Cologuard 1950 FIT 1950 FOBT 1950 Sigmoidoscopy 1950 COVID-19 Vaccine ( season) 2024 08/02/2021, 12/09/2020, 11/11/2020 RSV Patients and Patients Aged 60 years or older (1 - 1-dose 75+ series) 2024 Depression Screening 10/22/2024 10/22/2023, 10/22/19 24 SDOH Screening 01/20/2025 01/21/2024 Diabetes: Hemoglobin A1C 03/28/2025 025, 04/28/2024, 01/21/2024, Additional history exists Alcohol/Substance Use Screening 07/23/2025 07/23/2024 Diabetes: Foot Exam 09/28/2025 09/28/2024, 09/28/2024, 09/28/2024, Additional history exists Lipid Panel 09/28/2025 09/28/2024, 1103/2023, 07/23/2023, Additional history exists Tobacco Screening 09/28/2025 09/28/2024 Eye Exam 06/10/2026 06/10/2024, 05/18, 06/10/2024, Additional history exists DTaP/Tdap/Td Vaccines (3 - Td or Tdap) 07/04/2032 07/04/2022, 01/16/2012, 10/17/2007 Hepatitis B Vaccines Completed 07/01/2008, 02/25/2008, 01/22/2008 Hepatitis C Screening Completed 04/06/2019 Zoster Vaccines Completed 03/30/2020, 03/16, 10/12/2019, Additional history exists Pneumococcal Vaccine: 50+ Years Completed 10/22/2023, 12/09/2014, 01/18/2014, Additional history exists Influenza Vaccine Completed 07/23/2024, , 07/04/2022, Additional history exists HIB Vaccines Aged Out No longer eligi ble based on patient's age to complete this topic HPV Vaccines Aged Out No longer eligi ble based on patient's age to complete this topic Hepatitis A Vaccines Aged Out No long er eligible based on patient's age to complete this topic IPV Vaccines Aged Out No longer eligi ble based on patient's age to complete this topic Meningococcal Vaccine Aged Out No zoila jael eligible based on patient's age to complete this topic RSV under 20 months Aged Out No longe r eligible based on patient's age to complete this topic Rotavirus Vaccines Aged Out No longer eligible based on patient's age to complete this topic Procedures Procedure Name Priority Date/Time Associated Diagnosis Comments POCT INFLUENZA A (ID NOW RAPID MOLECULAR) Routine 10/14/2024 11:34 AM EST Viral URI POCT INFLUENZA B (ID NOW RAPID MOLECULAR) Routine 10/14/2024 11:34 AM EST Viral URI POCT RAPID COVID ANTIGEN Routine 10/14/2024 11:34 AM EST Viral URI XR CHEST 2 VIEWS Routine 10/14/2024 10:0 1 AM EST Subacute cough LIPID PANEL, STANDARD Routine 09/28/2024 9:32 AM EST Type 2 diabetes mellitus without complications (CMS/HCC) BASIC METABOLIC PANEL Routine 09/28/2024 9:32 AM EST Type 2 diabetes mellitus without complications (CMS/HCC) HEPATIC FUNCTION PANEL Routine 09/28/2024 9:32 AM EST Type 2 diabetes mellitus without complications (CMS/HCC) ALBUMIN, RANDOM URINE W/CREATININE Routine 09/28/2024 9:22 AM EST Type 2 diabetes mellitus without complications (CMS/HCC) POCT GLYCATED HEMOGLOBIN, TOTAL Routine 09/28/2024 9:06 AM EST Type 2 diabetes mellitus with stage 4 chronic kidney disease, without long-term current use of insulin (CMS/HCC) POCT GLUCOSE Routine 09/28/2024 9:05 AM EST Type 2 diabetes mellitus with stage 4 chronic kidney disease, without long-term current use of insulin (CMS/HCC) POCT INFLUENZA B (ID NOW RAPID MOLECULAR) Routine 09/01/2024 9:01 AM EST Acute bronchitis, unspecified organism POCT INFLUENZA A (ID NOW RAPID MOLECULAR) Routine 09/01/2024 9:01 AM EST Acute bronchitis, unspecified organism POCT RAPID COVID ANTIGEN Routine 09/01/2024 9:01 AM EST Acute bronchitis, unspecified organism POCT GLUCOSE Routine 07/23/2024 10:35 AM EST Type 2 diabetes mellitus with stage 4 chronic kidney disease, without long-term current use of insulin (CMS/HCC) HEPATITIS C ANTIBODY (EXTERNAL RESULTS ONLY) Routine 04/06/2019 5:19 AM EDT from Last 3 Months or Most Recently Relevant to Health Maintenance Results * Influenza B (ID NOW Rapid Molecular) (10/14/2024 11:34 AM EST) Only the most recent of2 resultswithin the time period is included. Influenza B Negative Negative, Indeterminate [facility] Swab 10/14/2024 11:3 4 AM EST us Lyndon Romero MD POINT OF CARE TEST ENTER/EDIT OR DERABLES Final Result Performing Organization Address [facility] de Phone Number [facility] [address] [place] [phone] * Influenza A (ID NOW Rapid Molecular) (10/14/2024 11:34 AM EST) Only the most recent of2 resultswithin the time period is included. Influenza A Negative Negative, Indeterminate [facility] Swab 10/14/2024 11:3 4 AM EST us Lyndon Romero MD POINT OF CARE TEST ENTER/EDIT OR DERABLES Final Result Performing Organization Address [facility] de Phone Number [facility] [address] [place] [phone] * POCT Rapid COVID Ag (10/14/2024 11:34 AM EST) Only the most recent of2 resultswithin the time period is included. Rapid COVID Ag Negative [facility] Swab 10/14/2024 11:3 4 AM EST us Lyndon Romero MD POINT OF CARE TEST ENTER/EDIT OR DERABLES Final Result Performing Organization Address [facility]/State/ZIP Co de Phone Number [facility] [address] [place] [phone] * XR Chest 2 Views (10/14/2024 10:01 AM EST) Anatomical Region Laterality Modality Chest Radiographic Poppy ging 10/14/2024 10:0 1 AM EST Narrative 10/14/2024 11:14 AM EST ?[facility] ?[address] ?[place] [address] ?XRay Report ? Signed ? Patient: Deny,Jerome ?MR#: [id number] ? : 1950 ?Acct:[id number] ? Age/Sex: 74 / M ?ADM Date: 10/14/24 ? Loc: HO.HHCX ? Attending Dr: Keturah Hawley MD ? Ordering Physician: Keturah Hawley MD ?? Date of Service: 10/14/24 ?? Procedure(s): XR chest 2V ?? Accession Number(s): [id number] ? cc: Keturah Hawley MD ? EXAMINATION: [...] DD/ 1001 ? TD/TT: 10/14/24 1010 ? Maid Supervisor: ? Procedure Note Kenia, Image - 10/14/[address] [facility] [address] [place] [address] XRay Report Signed Patient: Jose Barclay LMR#: [id number] : 9Acct:[id number] Age/Sex: 74 / MADM Date: 10/14/24 Loc: HO.HHCX Attending Dr: Keturah Hawley MD Ordering Physician: Keturah Hawley MD Date of Service: 10/14/24 Procedure(s): XR chest 2V Accession Number(s): [id number] cc: Keturah Hawley MD EXAMINATION: XR CHEST CLINICAL INFORMATION: cough. [...] 10/14/24 1112 DD/ 1001 TD/TT: 10/14/24 1010 Maid Supervisor: Keturah Hawley MD IMG XR PROCEDURES Edited Result - Final * Hepatic Function Panel (09/28/2024 9:32 AM EST) Bilirubin, Total 0.6 0.0 - 1.0 mg/dL [facility] Bilirubin, Direct 0.2 0.0 - 0.5 mg/dL [facility] Aspartate Amino Transferase 23 5 - 37 U/L [facility] Alanine Aminotransferase 37 0 - 40 U/L [facility] Total Protein 6.7 6.5 - 8.0 g/dL [facility] Albumin Level 4.0 3.5 - 5.0 g/dL [facility] Alkaline Phosphatase 90 39 - 117 U/L [facility] 09/28/2024 9:32 AM EST 09/28/2024 10:59 AM EST Keturah Hawley MD LAB BLOOD ORDERABLES Final Resul t Performing Organization Address [facility] de Phone Number [facility] [address] [place] [address] [phone] * (ABNORMAL) Lipid Panel, Standard (09/28/2024 9:32 AM EST) Triglycerides 371(H) <150 mg/dL [facility] Comment:Desirable Triglyceri de: less than 150 mg/dLBorderline High Triglyceride 150-199 mg/dLHigh Triglyceride: 200-499 mg/dLVery High Triglyceride: greater than or equal to 5OO mg/dL Cholesterol 139 <200 mg/dL [facility] Comment:Desirable Cholestero l: less than 200 mg/dLBorderline High Cholesterol: 200-239 mg/dLHigh Cholesterol: greater than 239 mg/dL LDL Cholesterol Calculated 42 <100 mg/dL [facility] Comment:Desirable LDL: less than 100 mg/dLNear Optimal/Above Optimal LDL: 110- 129 mg/dLBorderline High LDL: 130-159 mg/dLHigh LDL: 160-189 mg/dLVery High LDL: greater than or equal to 190 mg/dL HDL Cholesterol 23(L) >40 mg/dL [facility] Comment:Desirable HDL: great er than 40 mg/dL Note: This HDL assay may give artificially low results in patients with liver disease. 09/28/2024 9:32 AM EST 09/28/2024 10:59 AM EST Keturah Hawley MD LAB BLOOD ORDERABLES Final Resul t Performing Organization Address [facility] Co de Phone Number [facility] [address] [place] [address] [phone] * (ABNORMAL) Basic Metabolic Panel (09/28/2024 9:32 AM EST) Sodium 141 135 - 145 mmol/L [facility] Potassium 4.0 3.3 - 5.1 mmol/L [facility] Chloride 111(H) 96 - 108 mmol/L [facility] Carbon Dioxide 24 22 - 29 mmol/L [facility] Anion Gap 10(L) 12 - 20 [facility] Urea Nitrogen (BUN) 26(H) 9 - 16 mg/dL [facility] Creatinine, Serum 1.74(H) 0.5 - 1.4 mg/dL [facility] Estimated Glomerular Filt Rate 38 [facility] Comment:Chronic Kidney Disea se: Estimated GFR < 60 mL/min/1.94f2Trvhes Kidney Disease: Estimated GFR < 15 mL/min/1.73m2 Glucose 138(H) 60 - 115 mg/dL [facility] Calcium 9.1 8.4 - 10.2 mg/dL [facility] 09/28/2024 9:32 AM EST 09/28/2024 10:59 AM EST us Keturah Hawley MD LAB BLOOD ORDERABLES Final Resul t [facility] [address] [place] [phone] * (ABNORMAL) Albumin, Random Urine W/Creatinine (09/28/2024 9:22 AM EST) Creatinine, Urine 341.60 mg/dL [facility] Microalbumin Urine 1,405.0 mg/L [facility] Microalbum Creatinine Ratio Ur 411.2(H) <30 ug/mg cr [facility] Comment:Albumin/Creatinine R atio Reference Ranges: Normal: < 30 ug/mg creatinine Microalbuminuria: 30 - 300 ug/mg creatinineClinical Albuminuria: > 300 ug/mg creatinine 09/28/2024 9:22 AM EST 09/28/2024 10:58 AM EST Keturah Hawley MD LAB URINE ORDERABLES Final Resul t [facility] [address] [place] [address] [phone] * (ABNORMAL) POCT HGB A1C (09/28/2024 9:06 AM EST) Hemoglobin A1C 6.5(A) 4.0 - 6.0 % QC Media Lot # [id number] Lot# Expiration Date Blood 09/28/2024 9:06 AM EST Keturah Hawley MD POINT OF CARE TEST ENTER/EDIT OR DERABLES Final Result * POCT Glucose (09/28/2024 9:05 AM EST) Only the most recent of2 resultswithin the time period is included. Glucose Blood, POC 141 60 - 200 mg/dL QC Media Lot # [id number] Lot# Expiration Date Blood Capillary blood specimen / Unknown 09/28/2024 9:05 AM EST Keturah Hawley MD POINT OF CARE TEST ENTER/EDIT OR DERABLES Edited Result - Final * Hepatitis C Antibody (04/06/2019 5:19 AM EDT) Hepatitis C Antibody Nonreactive Blood 04/06/2019 5:19 AM EDT Fauzia Harper MD POINT OF CARE TEST ENTER/ EDIT ORDERABLES Final Result from Last 3 Months or Most Recently Relevant to Health Maintenance Insurance MEDICARE [facility] STANDARD Care Teams Director Digital Relationship Specialty Start Date End Date Keturah Hawley MD [address] [place] [address] PCP - General Family Medicine 09/16/18 Lucio Sutton, Maryana [address] [place] [address] Pharmacist Internal Medicine 08/25/24
--- OUTSIDE RECORDS SUMMARY | 2024-10-14 11:50 | XMS_ITS | Encounter Summary ---
Author Organization [employer] Address [address] [facility] [address] [place] [address] Care Team Providers Care Treater Helper Name Role Phone Keturah Hawley MD Primary Care Provider [phone] Lucio Sutton PharmD Unavailable [phone] Encounter Details Date Type Department Care Team (Latest Contact Info) Description 09/28/2024 Travel Social History Tobacco Use Types Packs/Day Years [...] Description 10/23/2024 2:00 PM EST Office Visit [facility] [address] [place] [phone] Ro Galan MD [address] [place] [phone] 10/26/2024 10:30 AM EST Medication Management [address] [address] Lucio Sutton, PharmD [address] [place] [phone] documented as of this encounter Visit Diagnoses Not on filedocumented in this encounter Additional Health Concerns Assessment Noted Time PHQ-9 Depression Total Score: 3 10/22/19 24 9:09 AM EST documented as of this encounter Care Teams Treater Helper Relationship Specialty Start Date End Date Keturah Hawley MD [address] [place] [phone] PCP - General Family Medicine 09/16/18 Lucio Sutton, PharmD [address] [place] [phone] Pharmacist Internal Medicine 08/25/24 documented as of this encounter
--- OUTSIDE RECORDS SUMMARY | 2024-10-14 11:50 | XMS_ITS | Encounter Summary ---
Author Organization [email or web address] Address [address] [facility] [address] [place] [address] Care Team Providers Care Custom Clothier Name Role Phone Keturah Hawley MD Primary Care Provider [phone] Lucio Sutton PharmD Unavailable [phone] Reason for Visit * Reason Onset Date Comments Med Refill 11/26/2023 Encounter Details Date Type Department Care Team (Late st Contact Info) Description 11/26/2023 Telephone [facility] [address] [place], [place] [phone] Keturah Hawley MD [address] [place], [place] [phone] Med Refill Social History Tobacco Use Types Packs/Day Years Used Date Smoking Tobacco: Former Cigarettes Q uit: 12/19/2008 Passive Smoke Exposure: Past Smokeless Tobacco: Never Depression Answer Date Recorded Patient Health Questionnaire-9 Score 3 10/22/2023 Patient Health Questionnaire-9 Score 3 10/22/2023 Last PHQ-9: Questionnaire Data Not on file 0 10/22/2023 Housing Stability Answer Date Recorded What is your housing situation today? I have he escalona 07/03/[address] you [...] encounter Miscellaneous Notes * Telephone Encounter - Zonia Rowland LPN - 11/26/2023 9:52 AM EDT Medications were sent to [facility] on 06/10/23 with 11 refills. * Telephone Encounter - Harley Dutton - 11/26/2023 9:27 AM EDT TC from pt requesting medication refill. Medications needing refill : glucose blood (FREESTYLE LITE) test strip TRUEplus Lancets 33[facility] To be sent to: [facility] - [place], [place] - [address] [place] [address] documented in this encounter Plan of Treatment Upcoming Encounters Date Type Department Care Team (Late st Contact Info) Description 10/23/2024 2:00 PM EST Office Visit [facility] [address] [place] [phone] Ro Galan MD [address] [place] [address] 10/26/2024 10:30 AM EST Medication Management [facility] [address] [place] [address] Lucio Sutton, PharmD [address] [place] [address] documented as of this encounter Visit Diagnoses Not on filedocumented in this encounter Additional Health Concerns Assessment Noted Time PHQ-9 Depression Total Score: 3 10/22/19 24 9:09 AM EST documented as of this encounter Care Teams Custom Clothier Relationship Specialty Start Date End Date Keturah Hawley MD [address] [place] [address] PCP - General Family Medicine 09/16/18 Lucio Sutton, EdenilsonD [address] [place] [address] Pharmacist Internal Medicine 08/25/24 documented as of this encounter
--- OUTSIDE RECORDS SUMMARY | 2024-10-14 11:50 | XMS_ITS | Encounter Summary ---
Author Organization [employer] Address [address] [facility] [address] [place] [address] Care Team Providers Care Program Supervisor Name Role Phone Alba Hawley MD Primary Care Provider [phone] Lucio Sutton PharmD Unavailable [phone] Reason for Referral * Consultation (Routine) - Authorized Specialty Diagnoses / Procedures Referred By Contac t Referred To Contact Orthopaedic Surgery Diagnoses Trigger finger, left ring finger Alba Hawley MD [address] [place] [phone] Phone: tel: fax: [facility] Referral ID Status Reason Start Date Expiration Date Visits Requested Visits Authorized [id number] Authorized Specialty Services Required 09/28/2024 09/28/2025 1 1 Encounter Details Date Type Department Care Team (Late st Contact Info) Description 09/28/2024 9:00 AM EST Office Visit [facility] [address] [place] [address] [phone] Abla Hawley MD [address] [place] [address] [phone] Hypertension, unspecified type (Primary Dx); Type 2 diabetes mellitus with stage 4 chronic kidney disease, without long-term current use of insulin (CMS/HCC); Stage 3b chronic kidney disease (CMS/HCC); Dyslipidemia; Hypertriglyceridemia; Peripheral arterial occlusive disease (CMS/HCC); Bilateral carotid artery stenosis; Trigger finger, left ring finger; Subacute cough Social History Tobacco Use Types Packs/Day Years [...] Sign Reading Time Taken Comments Blood Pressure 114/58 09/28/2024 9:02 AM EST Pulse 58 09/28/2024 9:02 AM EST Temperature 36.1 ??C (96.9 ??F) 09/28/2024 9:02 AM ES T Respiratory Rate 19 09/28/2024 9:02 AM EST Oxygen Saturation - - Inhaled Oxygen Concentration - - Weight 91.7 kg (202 lb 4 oz) 09/28/2024 9:02 AM EST Height 167.6 cm (5' 6 ) 09/28/2024 9:02 AM EST Body Mass Index 32.64 09/28/2024 9:02 AM EST documented in this encounter Progress Notes * Alba Hawley MD - 09/28/2024 9:00 AM EST Subjective Jose Barclay is a 74 y.o. male who has hypertension, CKD3, diabetes mellitus type 2, and PAD, and patient presents for follow up of chronic conditions. Background: Our last encounter was 07/23/2024. Referred to Derm clinic for a lesion on his face. Switched lisinopril to losartan due to cough. Cologuard and lab were ordered. Interval history: Seen by Lucio Sutton, EdenilsonD, on 08/24/24, CDTM. Seen in the walk-in clinic on 09/01/24 for cough. Dx acute bronchitis. Rx prednisone 40 mg daily x 5d, guaifenesin - dextromethorphan, albuterol, and azithromycin. Patient cancelled appointment on 09/23/24 because he was having GI virus according to patient's partner. Derm clinic appointment on 10/23/24. Today: He states he is still coughing. Non-productive. He continues to have rhinorrhea. No fever. He is using albuterol inhaler, and states it has helped somewhat. He is concerned about his left ring finger. It gets stuck in flexed position, and is painful, especially in the morning. He is not taking any pain medication due to his kidney disease. He has an upcoming appointment with [facility]enter [facility] in October. Review of Systems Constitutional: Negative for activity change, appetite change and fever. Respiratory: Negative for shortness of breath. Cardiovascular: Negative for chest pain. Objective Vitals: 09/28/24 0902 BP: 114/58 BP Location: Right arm Patient Position: Sitting BP Cuff Size: Adult Pulse: 58 Resp: 19 Temp: 96.9 ??F (36.1 ??C) TempSrc: Oral Weight: 202 lb 4 oz (91.7 kg) Height: 5' 6 (1.676 m) Physical Exam Constitutional: General: He is not in acute distress. Appearance: Normal appearance. He is not ill-appearing. HENT: Head: Normocephalic and atraumatic. Mouth/Throat: Mouth: Mucous membranes are moist. Eyes: Extraocular Movements: Extraocular movements intact. Pupils: Pupils are equal, round, and reactive to light. Cardiovascular: Rate and Rhythm: Normal rate and regular rhythm. Pulses: Dorsalis pedis pulses are 1+ on the right side and 1+ on the left side. Posterior tibial pulses are 1+ on the right side and 1+ on the left side. Heart sounds: No murmur heard. Pulmonary: Effort: Pulmonary effort is normal. No respiratory distress. Breath sounds: Normal breath sounds. No wheezing or rhonchi. Musculoskeletal: Right foot: No deformity or Charcot foot. Left foot: No deformity or Charcot foot. Feet: Right foot: Protective Sensation: 4 sites tested. 0 sites sensed. Skin integrity: Skin integrity normal. No ulcer. Toenail Condition: Right toenails are normal. Left foot: Protective Sensation: 4 sites tested. 0 sites sensed. Skin integrity: Skin integrity normal. No ulcer. Toenail Condition: Left toenails are normal. Comments: Decreased sensation to monofilament and tuning fork. Skin: General: Skin is warm. Neurological: Mental Status: He is alert. Mental status is at baseline. Psychiatric: Mood and Affect: Mood normal. Results: Lab Results Component Value Date NA 138 07/23/2023 K 4.4 07/23/2023 CL 105 07/23/2023 CO2 24 07/23/2023 BUN 30 (H) 07/23/2023 CREATININE 1.78 (H) 07/23/2023 EGFR 38 07/23/2023 GLUCOSE 198 (H) 07/23/2023 TOTALBILIRUB 1.2 (H) 07/23/2023 AST 20 07/23/2023 ALT 32 07/23/2023 TOTPROTEIN 7.6 07/23/2023 ALB 4.5 07/23/2023 ALP 91 07/23/2023 Lab Results Component Value Date TRIG 489 (H) 07/23/2023 CHOL 163 07/23/2023 LDLCHOLCAL TNP 07/23/2023 HDL 28 (L) 07/23/2023 Lab Results Component Value Date HGBA1C 6.5 (A) 09/28/2024 MICROALBUR 186.0 07/23/2023 CREATUR 162.09 07/23/2023 MICROALBCREU 114.7 (H) 07/23/2023 Lab Results Component Value Date WBC 8.8 08/17/2020 WBC 8.8 08/17/2020 WBC 8.8 08/17/2020 WBC 8.8 08/17/2020 HGB 17.0 08/17/2020 HGB 17.0 08/17/2020 HGB 17.0 08/17/2020 HGB 17.0 08/17/2020 The 10-year ASCVD risk score (Milagro SANZ, et al., 2019) is: 45% Values used to calculate the score: Age: 74 years Sex: Male Is Non- : No Diabetic: Yes Tobacco smoker: No Systolic Blood Pressure: 114 mmHg Is BP treated: Yes HDL Cholesterol: 28 mg/dL Total Cholesterol: 163 mg/dL Screening and Health Care Maintenance: PHQ-2/9 Score: Patient Health Questionnaire-9 Score: 3 (10/22/2023 9:09 AM) Patient Health Questionnaire-2 Score: 3 (10/22/2023 9:09 AM) Thoughts that you would be better off or hurting yourself in some way: Not at all (10/22/2023 9:09 AM) HEMANTH-7 Score: No data recorded Health Maintenance Due Topic Date Due Colorectal Cancer Screening Never done COVID-19 Vaccine ( season) 2024 Diabetes: Foot Exam 07/23/2024 Lipid Panel 07/23/2024 RSV Patients and Patients Aged 60 years or older (1 - 1-dose 75+ series) Never done Assessment/Plan Problem List Items Addressed This Visit Dyslipidemia Current medications: atorvastatin 80 mg qhs; Fish oil 2 g daily Last lipid profile: 07/23/23 total cholesterol 163; triglyceride 489; LDL 53; HDL 28 Continue high-intensity statin therapy. Consider adding Zetia. Hypertension - Primary - primary and renovascular - Goal BP [...] Continue losartan 12.5 mg daily - Called [facility]'s office and requested AMBP 24-hour. - Follow-up in 3 mo or sooner prn Hypertriglyceridemia Current medications: atorvastatin 20 mg qhs; Fish oil 2 g daily Last lipid profile: 07/23/23 total cholesterol 163; triglyceride 489; LDL 53; HDL 28 Continue high-intensity statin therapy. Consider adding Zetia. Stage 3b chronic kidney disease ([facility]) -Customer Program Manager, NEHA Berrios, seen in 05/07/24, increased jardiance [...] -Emphasized the importance of keeping appt with [facility] Carotid artery stenosis Followed by [facility] vascular team, last seen in December 2023 -s/p left carotid endarterectomy in January 2016 -Recent carotid doppler studies: 12/24/23 Carotid US - Right 70-99%; left s/p CEA 11/20/22 Carotid US - Right 70-99%; left s/p CEA 11/23/21 Carotid US - Right 50-69%; Left 50-69% 03/13/21 Carotid US- Right 70-99%; Left 1-49% s/p left CEA. -Continue risk factor management. Peripheral arterial occlusive disease ([facility]) Specialist: [facility] vascular -last seen on 12/26/23 -Treatment Hx: Left renal artery bypass in January 2009; Right renal artery angioplasty and stenting inNovember 2013; Left carotid endarterectomy in January 2016 [...] risk factor management. -Continue surveillance study per [facility] vascular specialist Type 2 diabetes mellitus (CMS/HCC) -A1C 6.5% on 09/28/24, stable. He received [...] feet, Hx PAD -Eye exam: referred to [facility] eye care -Microalbumin test: 04/10/24 UACR 140 -Lipid profile: 07/23/23 total cholesterol 163; triglyceride 489; LDL 53; HDL 28 -Last dental exam: ? -Follow up in 3 mo. Relevant Orders POCT Glucose (Completed) POCT HGB A1C (Completed) Cough - infectious cause ruled out - switched ACEI to ARB - likely allergic rhinitis - trial of fluticasone nasal and cetirizine Other Visit Diagnoses Trigger finger, left ring finger Relevant Orders Referral to Orthopaedic Surgery No Known Allergies Current Outpatient Medications Medication Instructions albuterol 108 (90 Base) MCG/ACT inhaler 2 puffs, Inhalation, Every 4 hours PRN amLODIPine (Norvasc) 10 MG tablet TAKE 1 TABLET BY MOUTH EVERY MORNING aspirin (Aspirin Low Dose) 81 MG EC tablet TAKE 1 TABLET BY MOUTH EVERY MORNING atorvastatin (Lipitor) 80 MG tablet TAKE 1 TABLET BY MOUTH EVERY MORNING cetirizine (ZYRTEC) 5 mg, Oral, Daily PRN clopidogrel (Plavix) 75 MG tablet TAKE 1 TABLET BY MOUTH EVERY MORNING Dextromethorphan-guaiFENesin (Mucinex DM) 30-600 MG tablet sustained-release 12 hour Use 1 tab TID doxazosin (CARDURA) 2 mg, Oral, Nightly fluticasone (Flonase) 50 MCG/ACT nasal spray 1-2 sprays, Each Nostril, Daily, Shake gently. Before first use, prime pump. After use, clean tip and replace cap. FREESTYLE LITE test strip TEST BLOOD SUGAR ONCE DAILY glipiZIDE (Glucotrol) 10 MG tablet TAKE 2 TABLETS BY MOUTH TWICE DAILY IN THE MORNING AND AT NOON BEFORE MEALS hydrALAZINE (Apresoline) 100 MG tablet TAKE 1 TABLET BY MOUTH TWICE DAILY IN THE MORNING AND AT BEDTIME Jardiance 25 MG losartan (Cozaar) 25 MG tablet Take 1/2 tablet by mouth once daily metoprolol tartrate (Lopressor) 100 MG tablet TAKE 1 TABLET BY MOUTH TWICE DAILY IN THE MORNING ANDAT BEDTIME WITH MEALS pantoprazole (ProtoNix) 20 MG EC tablet TAKE 1 TABLET BY MOUTH EVERY MORNING TRUEplus Lancets 33G [facility] Check blood glucose once daily Follow-up: 3 mo or sooner if any problem arises. documented in this encounter Miscellaneous Notes * Assessment & Plan Note - Alba Hawley MD - 09/28/2024 9:52 AM ESTAssociated Problem(s): Cough - infectious cause ruled out - switched ACEI to ARB - likely allergic rhinitis - trial of fluticasone nasal and cetirizine * Assessment & Plan Note - Suleman Luevano - 09/28/2024 9:03 AM ESTAssociated Problem(s): Hypertriglyceridemia Current medications: atorvastatin 20 mg qhs; Fish oil 2 g daily Last lipid profile: 07/23/23 total cholesterol 163; triglyceride 489; LDL 53; HDL 28 Continue high-intensity statin therapy. Consider adding Zetia. * Assessment & Plan Note - Suleman Luevano - 09/28/2024 9:02 AM ESTAssociated Problem(s): Dyslipidemia Current medications: atorvastatin 80 mg qhs; Fish oil 2 g daily Last lipid profile: 07/23/23 total cholesterol 163; triglyceride 489; LDL 53; HDL 28 Continue high-intensity statin therapy. Consider adding Zetia. * Assessment & Plan Note - Suleman Luevano - 09/28/2024 9:01 AM ESTAssociated Problem(s): Type 2 diabetes mellitus (CMS/HCC) -A1C 6.5% on 09/28/24, stable. He received [...] feet, Hx PAD -Eye exam: referred to [facility] eye care -Microalbumin test: 04/10/24 UACR 140 -Lipid profile: 07/23/23 total cholesterol 163; triglyceride 489; LDL 53; HDL 28 -Last dental exam: ? -Follow up in 3 mo. * Assessment & Plan Note - Suleman Luevano - 09/28/2024 9:01 AM ESTAssociated Problem(s): Peripheral arterial occlusive disease (CMS/HCC) Specialist: [facility] vascular -last seen on 12/26/23 -Treatment Hx: Left renal artery bypass in January 2009; Right renal artery angioplasty and stenting inNovember 2013; Left carotid endarterectomy in January 2016 [...] risk factor management. -Continue surveillance study per [facility] vascular specialist * Assessment & Plan Note - Suleman Luevano - 09/28/2024 9:01 AM ESTAssociated Problem(s): Hypertension - primary and renovascular - Goal BP [...] Continue losartan 12.5 mg daily - Called [facility] office and requested AMBP 24-hour. - Follow-up in 3 mo or sooner prn * Addendum Note - Alba Hawley MD - 09/28/2024 9:00 AM ESTAddended by: ALBA HAWLEY on: 09/28/2024 05:19 PM Modules accepted: Orders * Assessment & Plan Note - Alba Hawley MD - 09/27/2024 4:43 PM ESTAssociated Problem(s): Stage 3b chronic kidney disease (CMS/HCC) -Customer Program Manager, NEHA Berrios, seen in 05/07/24, increased jardiance [...] -Emphasized the importance of keeping appt with [facility] * Assessment & Plan Note - Alba Hawley MD - 09/27/2024 4:33 PM ESTAssociated Problem(s): Carotid artery stenosis Followed by [facility] vascular team, last seen in December 2023 -s/p left carotid endarterectomy in January 2016 -Recent carotid doppler studies: 12/24/23 Carotid US - Right 70-99%; left s/p CEA 11/20/22 Carotid US - Right 70-99%; left s/p CEA 11/23/21 Carotid US - Right 50-69%; Left 50-69% 03/13/21 Carotid US- Right 70-99%; Left 1-49% s/p left CEA. -Continue risk factor management. documented in this encounter Plan of Treatment Upcoming Encounters Date Type Department Care Team (Late st Contact Info) Description 10/23/2024 2:00 PM EST Office Visit [facility] [address] [place] [phone] Ro Galan MD [address] [place] [phone] 10/26/2024 10:30 AM EST Medication Management [facility] [address] [place] [phone] Lucio Sutton, PharmD [address] [place] [phone] Scheduled Referrals Name Type Priority Associated Diagnoses Order Schedule Referral to Orthopaedic Surgery Outpatient Referral Routine Trigger finger, left ring finger Expected: 09/28/2024 (Approximate), Expires: 09/28/2025 documented as of this encounter Procedures Procedure Name Priority Date/Time Associated Diagnosis Comments POCT GLYCATED HEMOGLOBIN, TOTAL Routine 09/28/2024 9:06 AM EST Type 2 diabetes mellitus with stage 4 chronic kidney disease, without long-term current use of insulin ([facility]) POCT GLUCOSE Routine 09/28/2024 9:05 AM EST Type 2 diabetes mellitus with stage 4 chronic kidney disease, without long-term current use of insulin ([facility]) documented in this encounter Results * (ABNORMAL) POCT HGB A1C (09/28/2024 9:06 AM EST) Hemoglobin A1C 6.5(A) 4.0 - 6.0 % QC Media Lot # [id number] Lot# Expiration Date Blood 09/28/2024 9:06 AM EST us Alba Hawley MD POINT OF CARE TEST ENTER/EDIT OR DERABLES Final Result * POCT Glucose (09/28/2024 9:05 AM EST) Glucose Blood, POC 141 60 - 200 mg/dL QC Media Lot # [id number] Lot# Expiration Date ,025 Blood Capillary blood specimen / Unknown 09/28/2024 9:05 AM EST us Alba Hawley MD POINT OF CARE TEST ENTER/EDIT OR DERABLES Edited Result - Final documented in this encounter Visit Diagnoses Diagnosis Hypertension, unspecified type- Primary Type 2 diabetes mellitus with stage 4 chronic kidney disease, without long-term current use of insulin ([facility]) Stage 3b chronic kidney disease ([facility]) Dyslipidemia Other and unspecified hyperlipidemia Hypertriglyceridemia Pure hyperglyceridemia Peripheral arterial occlusive disease ([facility]) Unspecified peripheral vascular disease Bilateral carotid artery stenosis Occlusion and stenosis of carotid artery without mention of cerebral infarction Trigger finger, left ring finger Subacute cough documented in this encounter Additional Health Concerns Assessment Noted Time PHQ-9 Depression Total Score: 3 10/22/19 24 9:09 AM EST documented as of this encounter Care Teams Program Supervisor Relationship Specialty Start Date End Date Alba Hawley MD [address] [place] [address] PCP - General Family Medicine 09/16/18 Lucio Sutton, Maryana [address] [place] [address] Pharmacist Internal Medicine 08/25/24 documented as of this encounter
--- OUTSIDE RECORDS SUMMARY | 2024-10-14 11:50 | XMS_ITS | Encounter Summary ---
Author Organization [employer] Address [address] [facility] [address] [place] [address] Care Team Providers Care Turbine Room Attendant Name Role Phone Keturah Hawley MD Primary Care Provider [phone] Lucio Sutton PharmD Unavailable [phone] Encounter Details Date Type Department Care Team ([facility] st Contact Info) Description 10/04/2024 Telephone [facility] [address] [place], [place] [phone] Keturah Hawley MD [address] [place], [place] [phone] Social History Tobacco Use Types Packs/Day Years [...] encounter Miscellaneous Notes * Telephone Encounter - Keturah Hawley MD - 10/04/2024 4:33 PM EST Called patient since his informed me that he is still sick and coughing. Patient states his cough is better and he is taking cetirizine and fluticasone nasal. He was advised to seek a medical attention when his cough worsens again and/or he develops dyspnea, fever, or other concerning symptoms. Patient verbalized understanding. documented in this encounter Plan of Treatment Upcoming Encounters Date Type Department Care Team (Late st Contact Info) Description 10/23/2024 2:00 PM EST Office Visit [facility] [address] [place] [phone] Ro Galan MD [address] [place] [phone] 10/26/2024 10:30 AM EST Medication Management [facility] [address] [place] [phone] Lucio Sutton, PharmD [address] [place] [phone] documented as of this encounter Visit Diagnoses Not on filedocumented in this encounter Additional Health Concerns Assessment Noted Time PHQ-9 Depression Total Score: 3 10/22/19 24 9:09 AM EST documented as of this encounter Care Teams Turbine Room Attendant Relationship Specialty Start Date End Date Keturah Hawley MD [address] [place] [address] PCP - General Family Medicine 09/16/18 Lucio Sutton, EdenilsonD [address] [place] [phone] Pharmacist Internal Medicine 08/25/24 documented as of this encounter
== END 2024-10-14 10:01 | disposition home or self-care (01) ==
LOC: HO.HHCX 10:00
PROVIDERS: Visit Provider Family Medicine
DX: R05.2 Subacute cough (principal)
CPT/HCPCS: 71046

== ENCOUNTER → 2024-10-14 10:01 | Outpatient (BNV) | payer MEDICARE, SELFPAY | PROVIDERS: Visit Provider Radiology Diagnostic Radiology | DX: R05.2 Subacute cough (principal) | CPT/HCPCS: 71046 ==

== ENCOUNTER 2025-04-14 09:37 | Outpatient (REF) | payer MEDICARE, SELFPAY ==
--- OUTSIDE RECORDS SUMMARY | 2025-04-14 10:11 | XMS_ITS | Encounter Summary ---
Author Organization [employer] Address [address] [facility] [address] [place] [address] Care Team Providers Care Mental Health Case Manager Name Role Phone Keturah Hawley MD Primary Care Provider [phone] Lucio Sutton PharmD Unavailable [phone] Encounter Details Date Type Department Care Team (Late st Contact Info) Description 10/12/2024 Orders Only [facility] [address] [place], [place] [phone] Keturah Hawley MD [address] [place], [place] [phone] Subacute cough (Primary Dx) Social History Tobacco [...] as of this encounter Plan of Treatment Not on file documented as of this encounter Procedures Procedure Name Priority Date/Time Associated Diagnosis Comments XR CHEST 2 VIEWS Routine 10/14/2024 10:0 1 AM EST Subacute cough documented in this encounter Results * XR Chest 2 Views (10/14/2024 10:01 AM EST) Anatomical Region Laterality Modality Chest Radiographic Poppy ging 10/14/2024 10:0 1 AM EST Narrative 10/14/2024 11:14 [place] [address] XRay Report Signed Patient: Jose Barclay MR#: [id number] : 1950 Acct:[id number] Age/Sex: 74 / M ADM Date: 10/14/24 Loc: HO.HHCX Attending Dr: Keturah Hawley MD Ordering Physician: Keturah Hawley MD Date of Service: 10/14/24 Procedure(s): XR chest 2V Accession Number(s): [id number] cc: Keturah Hawley MD EXAMINATION: XR CHEST [...] Agus Snyder MD 10/14/2024 11:12 AM EST RP Dictated By: Agus Snyder MD Signed By: <Electronically signed by Agus Snyder MD in OV> 10/14/24 1112 DD/ 1001 TD/TT: 10/14/24 1010 Acquisition Professional: Procedure Note Donotuseinterpreter, Image - 10/14/[address] [address] XRay Report Signed Patient: Jose Barclay LMR#: [id number] : 9Acct:[id number] Age/Sex: 74 / MADM Date: 10/14/24 Loc: HO.HHCX Attending Dr: Keturah Hawley MD Ordering Physician: Keturah Hawley MD Date of Service: 10/14/24 Procedure(s): XR chest 2V Accession Number(s): [id number] cc: Keturah Hawley MD EXAMINATION: XR CHEST [...] Agus Snyder MD 10/14/2024 11:12 AM EST RP Dictated By: Agus Snyder MD Signed By: <Electronically signed by Agus Snyder MD in OV> 10/14/24 1112 DD/ 1001 TD/TT: 10/14/24 1010 Acquisition Professional: Keturah Hawley MD IMG XR PROCEDURES Edited Result - Final documented in this encounter Visit Diagnoses Diagnosis Subacute cough- Primary documented in this encounter Additional Health Concerns Assessment Noted Time PHQ-9 Depression Total Score: 3 10/22/19 24 9:09 AM EST documented as of this encounter Care Teams Mental Health Case Manager Relationship Specialty Start Date End Date Keturah Hawley MD [address] [place] [address] PCP - General Family Medicine 09/16/18 Lucio Sutton, Maryana [address] [place] [address] Pharmacist Internal Medicine 08/25/24 documented as of this encounter
--- OUTSIDE RECORDS SUMMARY | 2025-04-14 10:11 | XMS_ITS | Patient Health Record ---
Author Organization [facility] Address [address] [place] [phone] Care Team Providers Care Media Job Titles Name Role Phone Vadim Sorenson Unavailable [phone] Reason For Referral No Information Plan Of Treatment No Information
--- OUTSIDE RECORDS SUMMARY | 2025-04-14 10:11 | XMS_ITS | Clinical Summary ---
Author Organization [facility] Address [address] [place] [address] Phone Care Team Providers Care Personal Carer Name Role Phone Keturah Hawley MD Primary Care Provider [phone] Allergies No known active allergies Medications metoprolol [...] Assessment & Plan: -Vascular specialist: Dr. Dallas, [facility], last appt on 06/12/22 -Left renal [...] Overview (10/03/2022): Last Assessment & Plan: -Previous Fire Marshal: Dr. Townsend, -Currently followed by Dr. Russell -02/15/22 SCr 1.79, eGFR 38, K 4.8 -Avoid nephrotoxic drugs/substances and behaviors, including NSAIDs use. -Renal dosing meds, eCrCl 30 -Maintain adequate fluid intake, appropriate BP control and electrolyte balance. -Emphasized the importance of keeping appt with field training manager Dyslipidemia 03/14/2015 Overview (10/03/2022): Last Assessment & [...] Last Assessment & Plan: [facility] -last seen on 06/12/2022 -Treatment Hx: [...] q9-12 m Incipient senile cataract 04/11/2012 Immunizations Immunization Administration Dates Next Due Hepatitis B 07/01/2008,02/25/2008,01/22/2008 Influenza Split 06/24/2013,06/11/2012 Influenza Split High Dose Pr eservative Free IM 07/15/2019,06/20/2017,06/20/2015 Influenza, Quadrivalent, Preservative Free 09/04,06/17/2015 Influenza, Quadrivalent, With Preservative 07/05 Pneumococcal Conjugate 13-Valent 12/09/2014 Pneumococcal Polysaccharide 01/18/2014, 8 Shingrix 03/30/2020,10/12/2019 Td 07/04/2022,10/17/2007 Tdap 01/16/2012 Zoster 03/30/2020,10/12/2019,12/09/2014 Family History Medical History Relation Comments Heart disease Father [place] Relation Status Comments Father Mother Social History [...] 05/07/2024 1:09 PM EDT Plan of Treatment Health Maintenance Due Date Last Done Comments Colorectal Cancer Screening: Annual FOBT 1998 Colorectal Cancer Screening: Colonoscopy 1998 Colorectal Cancer Screening: Sigmoidoscopy 1998 Diabetes: Ophthalmology Exam 12/07/2019 Diabetes: Pedal Pulse Checked 12/07/2019 Diabetes: Sensory Foot Exam 12/07/2019 Diabetes: Visual Foot Exam 12/07/2019 Diabetes: Hemoglobin A1C 12/27/2024 025, 04/28/2024, 10/22/2023, Additional history exists Influenza Vaccine (#1) 2025 4, 07/23/2023, 07/15/2019, Additional history exists Hepatitis B Vaccine Aged Out 07/01/2008, 02/25/2008, 01/22/2008 No longer eligible based on patient's age to complete this topic Pneumococcal Vaccine: 50+ Years Completed 10/22/2023, 12/09/2014, 01/18/2014, Additional history exists Pneumococcal Vaccine: Peds (0 to 5 Years) and At-Risk Patients (6 to 49 Years) Discontinued 10/22/2023, 12/09/2014, 01/18/2014, Additional history exists Insurance Medicare Medicare Medicare Care Teams Personal Carer Relationship Specialty Start Date End Date Keturah Hawley MD PCP - General Family Medicine 12/14/20
[2025-04-14 11:53] LABS: Alanine Aminotransferase 31 U/L (0-40); Albumin Level 4.4 g/dL (3.5-5.0); Alkaline Phosphatase 91 U/L (39-117); Aspartate Amino Transferase 23 U/L (5-37); Total Protein 7.0 g/dL (6.5-8.0)
== END 2025-04-14 09:38 | disposition home or self-care (01) ==
LOC: HO.HHCL 09:37
PROVIDERS: PCP Family Medicine; Visit Provider Family Medicine
DX: R10.11 Right upper quadrant pain (principal)
CPT/HCPCS: 36415; 80076